=== PATIENT | female | born 1945 | race Caucasian/White ===

== ENCOUNTER → 2016-09-16 | Outpatient (CLI) | payer MEDICARE ==
[~2016-09-16] MED LIST: GLUCTAB47 PO; HYDR-3534 PO; LEVO.15 PO; PRAV80 PO; PRED20 PO; PRIL20TA2 PO; SOMA350T PO; SUCR1TAB6 PO; WALKER STANDARD
[2016-09-16 11:47] LABS: BLOOD GAS BASE EXCESS 2.5 mmol/L (-2-2); BLOOD GAS CARBOXYHEMOGLOBIN 1.6 % (0-4); BLOOD GAS HCO3 26 mmol/L (22-26); BLOOD GAS METHEMOGLOBIN 1.1 % (0-2); BLOOD GAS O2 HGB SATURATION 92 % (90-100); BLOOD GAS OXYGEN CONTENT 19.5 Vol % (12.0-20.0); BLOOD GAS PCO2 40 mmHg (38-42); BLOOD GAS PO2 73 mmHg (61-120); CRITICAL VALUE NO; FIO2 21 %; TEMP CORR TO 98.6
[2016-09-16 11:48] LABS: DRAW SITE RT RADIAL; NUMBER OF ARTERIAL PUNCTURES 1; STAT NO; ULNAR PULSE PRESENT
--- NOTE | 2016-09-16 12:35 | RADRPT ---
EXAM DATE/TIME: 09/16/2016 12:07 [facility] COMPARISON: No previous studies available for comparison. INDICATIONS : Respiratory insufficiency. MEDICAL HISTORY : None. SURGICAL HISTORY : None. ENCOUNTER: Initial ACUITY: 1 day PAIN SCORE: 0/10 LOCATION: Bilateral chest FINDINGS: PA and lateral views of the chest demonstrate the lungs to be symmetrically aerated without evidence of mass, infiltrate or effusion. The cardiomediastinal contours are unremarkable. Osseous structure s are intact. CONCLUSION: No acute disease. Darien Hull MD on September 16, 2016 at 12:33 Board Certified Radiologist. This report was verified electronically.
--- NOTE | 2016-09-28 10:05 | RSPPFT ---
DATE OF PROCEDURE: 09/16/16 COMMENTS: Spirometry with FVC of 2.6, FEV1 of 1.8, FEV1/FVC ratio at 70%. A non-significant response to acutely inhaled bronchodilator noted. Room air arterial blood gases show pH of 7.43, PCO2 of 40, PO2 of 73. Slow vital capacity is 78%. TLC is 100%. Diffusion capacity is mildly reduced however, when corrected for alveolar volume. IMPRESSION: 1. Moderately severe obstructive airways disease. 2. Non-significant response to acutely inhaled bronchodilator. 3. No evidence of airways restriction.
== END ==
LOC: HRSP 10:35
PROVIDERS: ATTEND Internal Medicine Sleep Medicine
DX: R06.89 Other abnormalities of breathing (principal)
CPT/HCPCS: 36600; 71020; 82805; 94060; 94726; 94729

== ENCOUNTER 2017-10-07 17:11 | Observation (INO) | payer MEDICARE ==
[2017-10-07 17:17] VITALS: BP 182/91; PULSE 72; RESP 18; TEMP 98.4; O2SAT 97
[2017-10-07] MEDS ORDERED: PRAV40TA2 PO (18:27)
[2017-10-07] MEDS ORDERED: LEVO150T7 PO (18:27)
[2017-10-07] MEDS ORDERED: SUCR1TAB PO (18:27)
[2017-10-07] MEDS ORDERED: DULO20 PO (18:27)
[2017-10-07] MEDS ORDERED: pain med PO (18:27)
[2017-10-07 18:46] VITALS: BP 172/90; PULSE 70; RESP 21; O2SAT 95
[2017-10-07] MEDS ORDERED: HYDR-3580 PO (18:53)
[2017-10-07 19:13] LABS: BASOPHIL # 0.1 TH/MM3 (0-0.2); EOSINOPHIL # 0.4 TH/MM3 (0-0.4); EOSINOPHIL % 4.9 % (0.0-4.0); HEMATOCRIT 41.5 % (35.0-46.0); HEMOGLOBIN 13.9 GM/DL (11.6-15.3); MEAN CELL VOLUME 91.4 FL (80.0-100.0); MEAN CORPUSCULAR HEMOGLOBIN 30.6 PG (27.0-34.0); MEAN CORPUSCULAR HGB CONC 33.5 % (32.0-36.0); MEAN PLATELET VOLUME 7.1 FL (7.0-11.0); MONO % 9.4 % (0.0-8.0); MONOCYTE # 0.8 TH/MM3 (0-0.9); NEUT % 60.7 % (16.0-70.0); PLATELET COUNT 212 TH/MM3 (150-450); RED BLOOD COUNT 4.54 MIL/MM3 (4.00-5.30); RED CELL DISTRIBUTION WIDTH 13.6 % (11.6-17.2); WHITE BLOOD COUNT 8.2 TH/MM3 (4.0-11.0)
[2017-10-07 19:14] LABS: AMORPHOUS SEDIMENT, URINE RARE; BACTERIA, URINE OCC /hpf; BILIRUBIN, URINE NEG (NEG); BLOOD, URINE MOD (NEG); GLUCOSE,URINE NEG (NEG); KETONE, URINE NEG (NEG); NITRITE,URINE NEG (NEG); PH, URINE 5.5 (5.0-8.5); SQUAMOUS EPITHELIAL CELL URINE 1 /hpf (0-5); URINE COLOR COLORLESS (YELLW/STRAW); URINE LEUKOCYTE ESTERASE LARGE (NEG)
--- NOTE | 2017-10-07 19:31 | PD ---
HPI Chief Complaint: Abnormal Results Time Seen by Provider: 18:19 Travel History International Travel<30 days: No Contact w/Intl Traveler<30days: No Traveled to known affect area: No History of Present Illness HPI This is a 72-year-old female with history of hypothyroidism, fibromyalgia, presents today with complaints of newly diagnosed DVT of the right lower extremely. Patient reports she has had swelling and pain of her right lower extremity. She states when she went and saw her residential leasing agent, Dr. Payne, the physician ordered an outpatient ultrasound which showed positive DVT. PFSH Past Medical History Arthritis: Yes (OSTEOARTHRITIS) High Cholesterol: Yes Diabetes: Yes (diet control ) Patient Takes Glucophage: No Fibromyalgia: Yes Hypertension: Yes Immune Disorder: No Kidney Stones: Yes Neurologic: No Psychiatric: No Reproductive: No Sleep Apnea: Yes Thyroid Disease: Yes (HYPOTHROIDISM) Menopausal: Yes Past Surgical History Appendectomy: Yes Cardiac Surgery: Yes (CAROTIDECTOMY) Hysterectomy: Yes Joint Replacement: Yes (RIGHT TOTAL HIP) Tonsillectomy: Yes (WITH ADENOIDS) Other Surgery: Yes (BREAST BIOPSY) Social History Alcohol Use: No Tobacco Use: No Substance Use: No Allergies-Medications (Allergen,Severity, Reaction): Coded Allergies: adhesive (Unverified Allergy, Severe, Rash, 10/07/17) mercury salts (Unverified Allergy, Severe, RASH,EDEMA,PUSTULES, 10/07/17) neomycin (Unverified Allergy, Severe, VAGINITIS, 10/07/17) povidone-iodine (Unverified Allergy, Severe, Rash,EDEMA,PUSTULES, 10/07/17) Reported Meds & Prescriptions Reported Meds & Active Scripts Active Reported Hydrocodone-Acetaminophen 7.5 Mg-325 Mg Tab 2 Tab PO Q4-6H PRN Cymbalta DR (Duloxetine HCl) 20 Mg Capdr 20 Mg PO DAILY Pravastatin 40 Mg Tab 40 Mg PO DAILY Sucralfate 1 Gram Tab 1 Gm PO DAILY on empty stomach Levothyroxine (Levothyroxine Sodium) 150 Mcg Tab 150 Mcg PO DAILY Review of Systems Except as stated in HPI: all other systems reviewed are Neg General / Constitutional: No: Fever Eyes: No: Blurred Vision, Photophobia HENT: No: Headaches Cardiovascular: No: Chest Pain or Discomfort, Palpitations Respiratory: No: Cough, Shortness of Breath Gastrointestinal: No: Nausea, Vomiting Musculoskeletal: Positive: Edema (Right lower extreme right lower extremely), Pain (Right lower extremity), No: Limited ROM Neurologic: No: Weakness, Dizziness, Syncope, Headache Physical Exam Narrative GENERAL: Well-nourished, well-developed patient. Patient is in no acute respiratory distress. SKIN: Focused skin assessment warm/dry. HEAD: Normocephalic/atraumatic. EYES: No scleral icterus. No injection or drainage. NECK: Supple, trachea midline. No JVD or lymphadenopathy. CARDIOVASCULAR: Regular rate and rhythm without murmurs, gallops, or rubs. RESPIRATORY: Breath sounds equal bilaterally. No accessory muscle use. GASTROINTESTINAL: Abdomen soft, non-tender, nondistended. MUSCULOSKELETAL: No cyanosis,. Mild swelling to the right lower extremity compared to left lower extremity. No palpable cords. NEUROLOGICAL: Awake and alert. Cranial nerves II through XII intact. Motor and sensory grossly within normal limits. Five out of 5 muscle strength in all muscle groups. Normal speech. Data Data Last Documented VS Vital Signs Date Time Temp Pulse Resp B/P (MAP) Pulse Ox O2 Delivery O2 Flow Rate FiO2 10/07/17 18:46 70 21 172/90 (117) 95 Room Air 10/07/17: 98.4 Orders Orders Complete Blood Count With Diff (10/07/17:) Comprehensive Metabolic Panel (10/07/17:) Prothrombin Time / Inr (Pt) (10/07/17:) Act Partial Throm Time (Ptt) (10/07/17:) Urinalysis - C+S If Indicated (10/07/17 18:) Chest, Single Ap (10/07/17 18:19) Iv Access Insert/Monitor (10/07/17 18:19) Ecg Monitoring (10/07/17 18:19) Oximetry (10/07/17:) Urine Culture (10/07/17:45) Labs Laboratory Tests Test 10/07/17 18:45 White Blood Count 8.2 TH/MM3 Red Blood Count 4.54 MIL/MM3 Hemoglobin 13.9 GM/DL Hematocrit 41.5 % Mean Corpuscular Volume 91.4 FL Mean Corpuscular Hemoglobin 30.6 PG Mean Corpuscular Hemoglobin Concent 33.5 % Red Cell Distribution Width 13.6 % Platelet Count 212 TH/MM3 Mean Platelet Volume 7.1 FL Neutrophils (%) (Auto) 60.7 % Lymphocytes (%) (Auto) 24.0 % Monocytes (%) (Auto) 9.4 % Eosinophils (%) (Auto) 4.9 % Basophils (%) (Auto) 1.0 % Neutrophils # (Auto) 5.0 TH/MM3 Lymphocytes # (Auto) 2.0 TH/MM3 Monocytes # (Auto) 0.8 TH/MM3 Eosinophils # (Auto) 0.4 TH/MM3 Basophils # (Auto) 0.1 TH/MM3 CBC Comment DIFF FINAL Differential Comment Urine Color COLORLESS Urine Turbidity CLEAR Urine pH 5.5 Urine Specific [place] 1.004 Urine Protein NEG mg/dL Urine Glucose (UA) NEG mg/dL Urine Ketones NEG mg/dL Urine Occult Blood MOD Urine Nitrite NEG Urine Bilirubin NEG Urine Urobilinogen LESS THAN 2.0 MG/DL Urine Leukocyte Esterase LARGE Urine RBC 3 /hpf Urine WBC 56 /hpf Urine Squamous Epithelial Cells 1 /hpf Urine Amorphous Sediment RARE Urine Bacteria OCC /hpf Microscopic Urinalysis Comment CULTURE INDICATED MDM Medical Decision Making Medical Screen Exam Complete: Yes Emergency Medical Condition: Yes Differential Diagnosis DVT versus cellulitis versus tendinitis Narrative Course 72-year-old female presents today with complaints of newly diagnosed DVT of the right lower extremity. Patient had outpatient ultrasound right lower extremity which showed a deep venous thrombosis. She was sent here for evaluation and admission. She has a history of hypothyroidism and fibromyalgia. Case was discussed with Dr. Mata, who will bring the patient in under observation. She will be started on Eliquis. Diagnosis Primary Impression: Acute deep vein thrombosis (DVT) of right lower extremity Additional Impressions: History of hypothyroidism History of fibromyalgia Admitting Information Admitting Physician Requests: Observation Lb Herbert MD October 07, 2017 19:31
[2017-10-07 19:42] LABS: ALKALINE PHOSPHATASE 82 U/L (45-117); ALT (GPT) 19 U/L (10-53); TOTAL BILIRUBIN ADULT 0.6 MG/DL (0.2-1.0); TOTAL PROTEIN 7.7 GM/DL (6.4-8.2)
[2017-10-07 19:47] LABS: ALBUMIN 3.5 GM/DL (3.4-5.0); AST (GOT) 41 U/L (15-37); BICARBONATE 27.3 MEQ/L (21.0-32.0); BLOOD UREA NITROGEN 24 MG/DL (7-18); CALCIUM 9.7 MG/DL (8.5-10.1); CHLORIDE 106 MEQ/L (98-107); CREATININE 0.88 MG/DL (0.50-1.00); GLOMERULAR FILTRATION RATE 63 ML/MIN (>89); GLUCOSE,RANDOM 95 MG/DL (74-106); SODIUM (NA) 141 MEQ/L (136-145)
[2017-10-07] MEDS ORDERED: ACETAMINOPHEN/HYDROcodone 325 MG/7.5 MG TAB PO PRN (20:30)
[2017-10-07] MEDS ORDERED: ONDANSETRON HCL 4 MG/2 ML VIAL IVP PRN (20:30)
[2017-10-07] MEDS ORDERED: SODIUM CHLORIDE 0.9% FLUSH 10 ML FLUSH IV FLUSH PRN (20:30)
[2017-10-07] MEDS ORDERED: NALOXONE HCL 0.4 MG/ML AMP IV PUSH PRN (20:30)
[2017-10-07] MEDS ORDERED: ACETAMINOPHEN 325 MG TAB PO PRN (20:30)
--- NOTE | 2017-10-07 20:38 | RADRPT ---
EXAM DATE/TIME: 10/07/2017 18:57 [facility] COMPARISON: No previous studies available for comparison. INDICATIONS : Shortness of breath. MEDICAL HISTORY : None. SURGICAL HISTORY : None. ENCOUNTER: Initial ACUITY: 1 day PAIN SCORE: 0/10 LOCATION: Bilateral chest FINDINGS: A single view of the chest demonstrates the lungs to be symmetrically aerated without evidence of mas s, infiltrate or effusion. The cardiomediastinal contours are unremarkable. Osseous structures are intact. CONCLUSION: No acute disease. Jose Junior MD on October 07, 2017 at 20:36 Board Certified Radiologist. This report was verified electronically.
[2017-10-07] MEDS: SODIUM CHLORIDE 0.9% FLUSH 10 ML FLUSH IV FLUSH SCH (20:47)
[2017-10-07] MEDS: SODIUM CHLOR 0.9% 1000 ML INJ 1,000 ML IV SCH (20:47)
[2017-10-07] MEDS: APIXABAN 5 MG TABLET PO SCH (20:56)
--- NOTE | 2017-10-07 21:36 | HHI.HP ---
HPI Service [facility] Primary Care Physician Levy Bunch DO Admission Diagnosis acute right lower ext. dvt, hypothyroidism.fibromyalgia Diagnoses: Travel History International Travel<30 Days: No Contact w/Intl Traveler <30 Da: No Traveled to Known Affected Are: No History of Present Illness 72-year-old female with past medical history significant for fibromyalgia, osteoarthritis, hypothyroidism and recently diagnosed diabetes mellitus controlled with diet presents to the emergency department for the evaluation of a DVT. The patient reports she has had 3 weeks of right lower extremity swelling and redness. She was seen by her primary care provider today and lower extremity ultrasound was ordered as an outpatient. The ultrasound was positive for right lower extremity DVT and she was sent to the emergency department for further evaluation. The patient denies any right lower extremity pain/swelling. No chest pain or shortness of breath. No abdominal pain. No nausea/vomiting/diarrhea. No lateralizing signs/symptoms. Review of Systems Except as stated in HPI: all other systems reviewed are Neg Past Family Social History Past Medical History Fibromyalgia Osteoarthritis Hypothyroidism Diabetes mellitus controlled with diet Past Surgical History Left foot Tonsillectomy Right parotidectomy Total abdominal hysterectomy Appendectomy Cholecystectomy Right hip replacement Reported Medications Reported Meds & Active Scripts Active Reported Hydrocodone-Acetaminophen 7.5 Mg-325 Mg Tab 2 Tab PO Q4-6H PRN Cymbalta DR (Duloxetine HCl) 20 Mg Capdr 20 Mg PO DAILY Pravastatin 40 Mg Tab 40 Mg PO DAILY Sucralfate 1 Gram Tab 1 Gm PO DAILY on empty stomach Levothyroxine (Levothyroxine Sodium) 150 Mcg Tab 150 Mcg PO DAILY Allergies: Coded Allergies: adhesive (Unverified Allergy, Severe, Rash, 10/07/17) mercury salts (Unverified Allergy, Severe, RASH,EDEMA,PUSTULES, 10/07/17) neomycin (Unverified Allergy, Severe, VAGINITIS, 10/07/17) povidone-iodine (Unverified Allergy, Severe, Rash,EDEMA,PUSTULES, 10/07/17) Family History Negative for CAD/DM Social History Remote history of tobacco. Occasional alcohol. Denies illicit drugs. Physical Exam Vital Signs Vital Signs Date Time Temp Pulse Resp B/P (MAP) Pulse Ox O2 Delivery O2 Flow Rate FiO2 10/07/17 18:46 70 21 172/90 (117) 95 Room Air 10/07/17 17:17 98.4 72 18 182/91 (121) 97 Physical Exam GENERAL: female lying in bed SKIN: No rashes, ecchymoses or lesions. Cool and dry. Mild erythema on the right foot. HEAD: Atraumatic. Normocephalic. No temporal or scalp tenderness. EYES: Pupils equal round and reactive. Extraocular motions intact. No scleral icterus. No injection or drainage. ENT: Nose without bleeding, purulent drainage or septal hematoma. Throat without erythema, tonsillar hypertrophy or exudate. Uvula midline. Airway patent. NECK: Trachea midline. No JVD or lymphadenopathy. Supple, nontender, no meningeal signs. CARDIOVASCULAR: Regular rate and rhythm without murmurs, gallops, or rubs. RESPIRATORY: Clear to auscultation. Breath sounds equal bilaterally. No wheezes , rales, or rhonchi. GASTROINTESTINAL: Abdomen soft, non-tender, nondistended. No hepato-splenomegaly , or palpable masses. No guarding. MUSCULOSKELETAL: 2+ edema of the right lower extremity NEUROLOGICAL: Awake and alert. Cranial nerves II through XII intact. Motor and sensory grossly within normal limits. Normal speech. Laboratory Laboratory Tests Test 10/07/17 18:45 White Blood Count 8.2 Red Blood Count 4.54 Hemoglobin 13.9 Hematocrit 41.5 Mean Corpuscular Volume 91.4 Mean Corpuscular Hemoglobin 30.6 Mean Corpuscular Hemoglobin Concent 33.5 Red Cell Distribution Width 13.6 Platelet Count 212 Mean Platelet Volume 7.1 Neutrophils (%) (Auto) 60.7 Lymphocytes (%) (Auto) 24.0 Monocytes (%) (Auto) 9.4 Eosinophils (%) (Auto) 4.9 Basophils (%) (Auto) 1.0 Neutrophils # (Auto) 5.0 Lymphocytes # (Auto) 2.0 Monocytes # (Auto) 0.8 Eosinophils # (Auto) 0.4 Basophils # (Auto) 0.1 CBC Comment DIFF FINAL Differential Comment Prothrombin Time 10.0 Prothromb Time International Ratio 1.0 Activated Partial Thromboplast Time 23.3 Urine Color COLORLESS Urine Turbidity CLEAR Urine pH 5.5 Urine Specific [place] 1.004 Urine Protein NEG Urine Glucose (UA) NEG Urine Ketones NEG Urine Occult Blood MOD Urine Nitrite NEG Urine Bilirubin NEG Urine Urobilinogen LESS THAN 2.0 Urine Leukocyte Esterase LARGE Urine RBC 3 Urine WBC 56 Urine Squamous Epithelial Cells 1 Urine Amorphous Sediment RARE Urine Bacteria OCC Microscopic Urinalysis Comment CULTURE INDICATED Blood Urea Nitrogen 24 Creatinine 0.88 Random Glucose 95 Total Protein 7.7 Albumin 3.5 Calcium Level 9.7 Alkaline Phosphatase 82 Aspartate Amino Transf (AST/SGOT) 41 Alanine Aminotransferase (ALT/SGPT) 19 Total Bilirubin 0.6 Sodium Level 141 Potassium Level 5.0 Chloride Level 106 Carbon Dioxide Level 27.3 Anion Gap 8 Estimat Glomerular Filtration Rate 63 Date/Time Source Procedure Growth Status 10/07/17 18:45 Urine Random Urine Urine Culture Pending Received Result Diagram: 10/07/17184410/07/171844 Alrini VTE Risk Assessment Caprini VTE Risk Assessment: Mod/High Risk (score >= 2) Caprini Risk Assessment Model Point Value = 1 Point Value = 2 Point Value = 3 Point Value = 5 Age 41-60 Minor surgery BMI > 25 kg/m2 Swollen legs Varicose veins or History of unexplained or recurrent spontaneous Oral contraceptives or hormone replacement Sepsis (< 1 month) Serious lung disease, including pneumonia (< 1 month) Abnormal pulmonary function Acute myocardial infarction Congestive heart failure (< 1 month) History of inflammatory bowel disease Medical patient at bed rest Age 61-74 Arthroscopic surgery Major open surgery (> 45 min) Laparoscopic surgery (> 45 min) Malignancy Confined to bed (> 72 hours) Immobilizing plaster cast Central venous access Age >= 75 History of VTE Family history of VTE Factor V Leiden Prothrombin [id number] Lupus anticoagulant Anticardiolipin antibodies Elevated serum homocysteine Heparin-induced thrombocytopenia Other congenital or acquired thrombophilia Stroke (< 1 month) Elective arthroplasty Hip, pelvis, or leg fracture Acute spinal cord injury (< 1 month) Prophylaxis Regimen Total Risk Factor Score Risk Level Prophylaxis Regimen 0-1 Low Early ambulation 2 Moderate Order ONE of the following: *Sequential Compression Device (SCD) *Heparin 5000 units SQ BID 3-4 Higher Order ONE of the following medications: *Heparin 5000 units SQ TID *Enoxaparin/Lovenox 40 mg SQ daily (WT < 150 kg, CrCl > 30 mL/min) *Enoxaparin/Lovenox 30 mg SQ daily (WT < 150 kg, CrCl > 10-29 mL/min) *Enoxaparin/Lovenox 30 mg SQ BID (WT < 150 kg, CrCl > 30 mL/min) AND/OR *Sequential Compression Device (SCD) 5 or more Highest Order ONE of the following medications: *Heparin 5000 units SQ TID (Preferred with Epidurals) *Enoxaparin/Lovenox 40 mg SQ daily (WT < 150 kg, CrCl > 30 mL/min) *Enoxaparin/Lovenox 30 mg SQ daily (WT < 150 kg, CrCl > 10-29 mL/min) *Enoxaparin/Lovenox 30 mg SQ BID (WT < 150 kg, CrCl > 30 mL/min) AND *Sequential Compression Device (SCD) Assessment and Plan Assessment and Plan Assessment/plan: 1. DVT Outpatient ultrasound significant for right lower extremity DVT Jaqueline Anticipate discharge to home tomorrow with Jaqueline Follow-up outpatient with PCP 2. Hypothyroidism Continue home Synthroid 3. Fibromyalgia/chronic pain Continue home medications 4. Hyperlipidemia Continue home statin FEN Heart healthy diet Electrolytes: Monitor and replete as needed Yamileth Leal MD October 07, 2017 21:36
[2017-10-07 21:48] VITALS: BP 176/83; PULSE 81; RESP 17; TEMP 98.6; O2SAT 97
[2017-10-07 23:23] VITALS: BP 167/71; PULSE 82; RESP 17; TEMP 98.6; O2SAT 98
[2017-10-08 03:14] VITALS: BP 143/70; PULSE 77; RESP 17; TEMP 98.2; O2SAT 95
[2017-10-08 05:44] LABS: AUTOMATED NEUTROPHIL # 4.8 TH/MM3 (1.8-7.7); BASOPHIL # 0.1 TH/MM3 (0-0.2); BASOPHIL % 0.7 % (0.0-2.0); EOSINOPHIL # 0.5 TH/MM3 (0-0.4); EOSINOPHIL % 6.2 % (0.0-4.0); HEMATOCRIT 41.5 % (35.0-46.0); HEMOGLOBIN 14.1 GM/DL (11.6-15.3); LYMPH % 19.9 % (9.0-44.0); LYMPHOCYTE # 1.5 TH/MM3 (1.0-4.8); MEAN CELL VOLUME 91.6 FL (80.0-100.0); MEAN CORPUSCULAR HEMOGLOBIN 31.1 PG (27.0-34.0); MEAN CORPUSCULAR HGB CONC 33.9 % (32.0-36.0); MONOCYTE # 0.7 TH/MM3 (0-0.9); NEUT % 64.2 % (16.0-70.0); PLATELET COUNT 200 TH/MM3 (150-450); RED BLOOD COUNT 4.53 MIL/MM3 (4.00-5.30); RED CELL DISTRIBUTION WIDTH 13.5 % (11.6-17.2); WHITE BLOOD COUNT 7.4 TH/MM3 (4.0-11.0)
[2017-10-08] MEDS ORDERED: LEVOTHYROXINE SODIUM 150 MCG TAB PO SCH (06:00)
[2017-10-08 06:09] LABS: BICARBONATE 27.4 MEQ/L (21.0-32.0); CALCIUM 9.3 MG/DL (8.5-10.1); CREATININE 0.85 MG/DL (0.50-1.00)
[2017-10-08] MEDS: APIXABAN 5 MG TABLET PO SCH (08:07)
[2017-10-08] MEDS: SODIUM CHLOR 0.9% 1000 ML INJ 1,000 ML IV SCH (08:08)
[2017-10-08] MEDS: SODIUM CHLORIDE 0.9% FLUSH 10 ML FLUSH IV FLUSH SCH (08:08)
[2017-10-08 08:29] VITALS: BP 133/68; PULSE 74; RESP 18; TEMP 97.8; O2SAT 96
[2017-10-08] MEDS ORDERED: SUCRALFATE 1 GM TAB PO SCH (09:00)
[2017-10-08] MEDS ORDERED: DULoxetine HCl DR 20 MG CAP PO SCH (09:00)
[2017-10-08] MEDS ORDERED: PRAVASTATIN SOD 40 MG TAB PO SCH (09:00)
--- NOTE | 2017-10-08 11:33 | HHI.PR ---
Subjective Remarks Follow up for DVT. The patient reports continued right leg swelling, unchanged compared to yesterday. Denies any significant pain of the right leg. Denies ever having any chest pain or shortness of breath. O2 sat stable on room air. Thoroughly discussed starting Eliquis, patient verbalized understanding. She wants to go home. Objective Vitals Vital Signs Date Time Temp Pulse Resp B/P (MAP) Pulse Ox O2 Delivery O2 Flow Rate FiO2 10/08/17 08:29 97.8 74 18 133/68 (89) 96 10/08/17 03:14 98.2 77 17 143/70 (94) 95 10/07/17 23:23 98.6 82 17 167/71 (103) 98 10/07/17 21:48 98.6 81 17 176/83 (114) 97 10/07/17 21:43 10/07/17 18:46 70 21 172/90 (117) 95 Room Air 10/07/17 17:17 98.4 72 18 182/91 (121) 97 Result Diagram: 10/08/17 0508 10/08/17 0508 Imaging Last Impressions Chest X-Ray 10/07/171818 Signed Impressions: Service Date/Time: September 18:57 - CONCLUSION: No acute disease. Jose Junior MD Objective Remarks GENERAL: Well-nourished, well-developed elderly female patient in [facility]. SKIN: Warm and dry. No rash. HEENT: Normocephalic. Atraumatic. Pupils equal and round. Mucous membranes pink and moist. CARDIOVASCULAR: Regular rate and rhythm. No murmur appreciated. RESPIRATORY: No accessory muscle use. Clear to auscultation. Breath sounds equal bilaterally. GASTROINTESTINAL: Abdomen soft, non-tender, nondistended. Normoactive bowel sounds x4. MUSCULOSKELETAL: No obvious deformities. Right lower extremity with diffuse tense 1+pitting edema, nontender to palpation, right calf larger than the left. Left calf nontender/nonedematous. NEUROLOGICAL: Awake and alert. No obvious cranial nerve deficits. Motor grossly within normal limits. Moving all extremities spontaneously. Normal speech. PSYCHIATRIC: Appropriate mood and affect; insight and judgment normal. Procedures None. Medications and IVs Current Medications Medications (Trade) Dose Ordered Sig/Bonifacio Route Start Time Stop Time Status Last Admin (Eliquis) 10 mg BID PO 10/07/17 21:00 10/08/17 08:07 Sodium Chloride 1,000 ml @ 100 mls/hr Q10H IV 10/07/17 21:00 10/08/17 08:08 (NS Flush) 2 ml UNSCH PRN IV FLUSH 10/07/17 20:30 (NS Flush) 2 ml BID IV FLUSH 10/07/17 21:00 10/08/17 08:08 (Tylenol) 650 mg Q4H PRN PO 10/07/17 20:30 (Zofran Inj) 4 mg Q6H PRN IVP 10/07/17 20:30 (Narcan Inj) 0.4 mg UNSCH PRN IV PUSH 10/07/17 20:30 (Cymbalta Dr) 20 mg DAILY PO 10/08/17 09:00 10/08/17 08:07 (Synthroid) 150 mcg DAILY@0600 PO 10/08/17 06:00 10/08/17 06:38 (Pravachol) 40 mg DAILY PO 10/08/17 09:00 10/08/17 08:07 (Carafate) 1 gm DAILY PO 10/08/17 09:00 10/08/17 08:07 ([place] 7.5-325 Mg) 2 tab Q6H PRN PO 10/07/17 20:30 A/P Assessment and Plan 72-year-old female with past medical history significant for fibromyalgia, osteoarthritis, hypothyroidism and recently diagnosed diabetes mellitus controlled with diet sent to the ED by Dr. Payne's office after outpatient Doppler U/S positive for DVT. Acute RLE DVT: unclear etiology, no significant recent travel, not on hormonal therapy. Recently she was at an art show for an entire week where she sat for many hours at a time. -Reviewed patient's outpatient Doppler U/S disc with radiologist, confirmed RLE DVT of popliteal, peroneal, and superficial femoral veins. -Started on Eliquis 10mg bid x1week, then 5mg bid, discussed risks of medication -No complaints of chest pain, palpitations, shortness of breath, or hypoxia to suggest PE -Outpatient f/up with PCP -Case management to assist patient with receiving Eliquis prescription Hypothyroidism: chronic -Continue home Synthroid Fibromyalgia/chronic pain: chronic -Continue home medications Hyperlipidemia: chronic -Continue home statin Discharge Planning Discharge patient to home Condition on discharge: Stable Heart Healthy Diet as tolerated Ad Yaquelin activity Rx written: Eliquis 10mg bid x1 week, then 5mg bid Follow-up with primary care physician within 1 week Latosha Wilburn PA-C October 08, 2017 11:33 am
[2017-10-08] MEDS ORDERED: APIX5TAB PO (11:43)
--- NOTE | 2017-10-08 11:44 | HHI.DCPOC ---
Discharge Care Plan Diagnosis: (1) Acute deep vein thrombosis (DVT) of right lower extremity Goals to Promote Your Health * To prevent worsening of your condition and complications * To maintain your health at the optimal level Directions to Meet Your Goals Take your medications as prescribed Follow your dietary instruction Follow activity as directed Keep your appointments as scheduled Take your immunizations and boosters as scheduled If your symptoms worsen call your PCP, if no PCP go to Urgent Care Center or Emergency Room Smoking is Dangerous to Your Health. Avoid second hand smoke Call the 24-hour hour crisis hotline for domestic abuse at Latosha Wilburn PA-C October 08, 2017 11:44 am
== END 2017-10-08 17:45 | disposition home or self-care (01) ==
LOC: NEPE 17:11 → NEDA 19:45 → NEPFCDU 22:19
PROVIDERS: ADMIT Hospitalist; ATTEND Hospitalist
DX: I82.401 Acute embolism and thrombosis of unspecified deep veins of right lower extremity (principal); E03.9 Hypothyroidism, unspecified; M79.7 Fibromyalgia; G89.29 Other chronic pain; E78.5 Hyperlipidemia, unspecified; R82.99 Other abnormal findings in urine; B96.89 Other specified bacterial agents as the cause of diseases classified elsewhere; E11.9 Type 2 diabetes mellitus without complications; M79.89 Other specified soft tissue disorders; M19.90 Unspecified osteoarthritis, unspecified site; Z96.641 Presence of right artificial hip joint; Z87.891 Personal history of nicotine dependence
CPT/HCPCS: 71045; 80048; 80053; 81001; 85025; 85610; 85730; 87077; 87086; 87186; 96360; 96361; 99285; G0378; J7030

== ENCOUNTER 2018-02-20 11:30 | Observation (INO) ==
--- NOTE | 2018-02-20 12:17 | XR ---
EXAM DATE: 02/20/2018 11:54 AM EDT AGE/SEX: 73 years / Female INDICATIONS: Evaluate for pneumonia CLINICAL DATA: This is the patient's initial encounter. Patient reports that signs and symptoms have been present for 3 days and indicates a pain score of 0/10. MEDICAL/SURGICAL HISTORY: None. None. COMPARISON: [facility] [place], CHEST SINGLE AP, 10/07/2017. . FINDINGS: The heart is normal in size. The lungs demonstrate diffuse chronic appearing interstitial change but are otherwise clear. There is no overt congestive failure. No pneumothorax or pleural effusion is ashley ntified. The overall appearance of the parenchyma similar to a previous dated 10/07/2017. The visualiz ed bony structures are intact. CONCLUSION: Chronic appearing interstitial changes. No acute abnormality. Electronically signed by: Bari Andersen MD 02/20/2018 12:16 PM EDT
--- NOTE | 2018-02-20 12:25 | CT ---
EXAM DATE: 02/20/2018 12:08 PM EDT AGE/SEX: 73 years / Female INDICATIONS: Altered Mental Status CLINICAL DATA: This is the patient's initial encounter. Patient reports that signs and symptoms have been present for 1 day and indicates a pain score of 0/10. MEDICAL/SURGICAL HISTORY: Diabetes. Deep venous thrombosis. None. RADIATION DOSE: 56.35 CTDI (mGy) COMPARISON: No prior exams available for comparison. TECHNIQUE: CT of the head without contrast. Using automated exposure control and adjustment of the mA and/or kV according to patient size, radiation dose was kept as low as reasonably achievable to ob tain optimal diagnostic quality images. DICOM format image data is available electronically for revi ew and comparison. FINDINGS: Cerebrum: The ventricles are normal for age. No evidence of midline shift, mass lesion, hemorrhage or acute infarction. No extraaxial fluid collections are seen. Posterior Fossa: The cerebellum and brainstem are intact. The 4th ventricle is midline. The cerebe llopontine angle is unremarkable. Extracranial: The visualized portion of the orbits is intact. Skull: The calvaria is intact. No evidence of skull fracture. CONCLUSION: 1. Negative CT Head non contrast. . Electronically signed by: Bari Andersen MD 02/20/2018 12:24 PM EDT
--- NOTE | 2018-02-20 12:38 | ED ---
HPI General Chief complaint: Medical Clearance Stated complaint: Lethargy Time Seen by Provider: 02/20/18 11:53 Source: patient and family Mode of arrival: ambulatory Limitations: no limitations History of Present Illness HPI narrative: Patient is a 73-year-old female presenting to the emergency department for evaluation of altered mentation. Patient states that she just cannot concentrate. Her reports that she has had increased fatigue and has been sleeping. Patient states that she has been incontinent of stool and urine, she denies any numbness or saddle paresthesia, she states that she does not remember to go to the bathroom or cannot get up to go to the bathroom quick enough. She denies any abdominal pain, chest pain, shortness of breath, headache, nausea, vomiting. Started 4 days ago. Patient thinks it is because her CPAP has not been cleaned. Symptom onset was gradual, symptoms are mild in nature. Medical history is significant for sleep apnea, hypothyroidism, fibromyalgia, diet-controlled type 2 diabetes. Patient is not on any blood thinners, she has had no recent falls. She denies any illicit drug use. Related Data Home Medications Medication Instructions Recorded Confirmed levothyroxine 150 mcg PO DAILY 01/28/18 02/20/18 omeprazole magnesium [Prilosec OTC] 20 mg PO DAILY 01/28/18 02/20/18 duloxetine [Cymbalta] 60 mg PO DAILY 02/20/18 02/20/18 lovastatin 20 mg PO DAILY 02/20/18 02/20/18 Allergies Allergy/AdvReac Type Severity Reaction Status Date / Time adhesive Allergy Severe Rash Verified 01/28/18 22:42 mercury salts Allergy Severe RASH,EDEMA, Verified 01/28/18 22:42 PUSTULES neomycin Allergy Severe VAGINITIS Verified 01/28/18 22:42 povidone-iodine Allergy Severe Rash,EDEMA, Verified 01/28/18 22:42 PUSTULES Review of Systems ROS: all other systems reviewed are negative PMFSH History History Provided By: Patient and Family Member Medical History Medical History Fibromyalgia (Acute) Hypothyroid (Acute) Sleep apnea (Acute) DVT (deep venous thrombosis) (Acute) Diabetes (Acute) High cholesterol (Acute) Social History Social History Substance History: No History of Abuse Second Hand Smoke Exposure: Yes Smoking Status: Never smoker Tobacco Type: Cigarettes How Often Do You Have a Drink Containing Alcohol: 2 to 3 times a week Recent Travel in [facility] within the Last 8 Weeks: No Recent Out of Country Travel within the Last 8 Weeks: No Exam Narrative Exam Narrative: GENERAL: Well-developed, well-nourished, alert elderly female. Presenting in no acute distress. SKIN: Focused skin assessment warm/dry. HEAD: Atraumatic. Normocephalic. EYES: Pupils equal and round. No scleral icterus. No injection or drainage. ENT: No nasal bleeding or discharge. Mucous membranes pink and moist. NECK: Trachea midline. No JVD. CARDIOVASCULAR: Regular rate and rhythm. No murmur appreciated. RESPIRATORY: No accessory muscle use. Clear to auscultation. Breath sounds equal bilaterally. GASTROINTESTINAL: Abdomen soft, non-tender, nondistended. Hepatic and splenic margins not palpable. MUSCULOSKELETAL: No obvious deformities. No clubbing. No cyanosis. No edema. NEUROLOGICAL: Awake and alert, oriented x3. No obvious cranial nerve deficits. Motor grossly within normal limits. Normal speech. PSYCHIATRIC: Appropriate mood and affect; insight and judgment normal. Course Initial Documented Vital Signs Temperature 98.5 F 02/20/18 11:33 Pulse Rate 87 02/20/18 11:33 Blood Pressure 114/55 L 02/20/18 11:33 Pulse Oximetry 95 02/20/18 11:33 Last Documented Vital Signs Temperature 99.5 F 02/20/18 11:40 Pulse Rate 87 02/20/18 11:40 Respiratory Rate 20 02/20/18 11:40 Blood Pressure 114/55 L 02/20/18 11:40 Pulse Oximetry 95 02/20/18 15:28 Medical Decision Making ISAAC Attestation ISAAC supervised visit: Yes Attestation: I was present with the advanced practitioner during the management of this patient. I discussed the case with the advanced practitioner and agree with the findings and plan as documented in their note except as noted below. 73yF presenting with fatigue, urinary incontinence, confusion. Her workup is significant for leukocytosis with bandemia and UTI/ pyelonephritis. Lactic acid normal, CXR and CTH negative. This patient will require IV antibiotics and re- evaluation at frequent intervals. MDM Narrative Medical decision making narrative: Patient is well-appearing 73-year-old female , alert and oriented x3, no focal deficits on exam. Presenting for difficulty concentrating and increased fatigue as well as incontinence for the last 4 days. Labs and imaging ordered and pending. is at bedside. Patient's vital signs are stable. Patient was placed on telemetry monitoring continuous pulse oximetry. IV access was established. CBC with a white blood cell count of 17.8 with left shift and significant bandemia and elevated segs. Urinalysis is nitrite positive urinary tract infection, lactic acid and blood cultures ordered, urine culture is pending. Patient was started on vancomycin and Zosyn empirically. CT scan of the brain shows no acute findings and chest x-ray without any acute abnormalities. Lactic acid is normal. Patient will be admitted for IV antibiotic therapy. Patient and were advised on findings and plan of care and are agreeable. Discussed with residents who accepted admit under Dr. Betancourt. Admit orders placed. Medical Screen Exam Complete: Yes Emergency Medical Condition: Yes Differential Diagnosis Differential Diagnosis: UTI versus substance abuse versus metabolic abnormality versus TIA versus CVA versus other Medical Records Medical records reviewed: Yes I reviewed the patient's medical records. Lab Data Lab results reviewed: Yes I reviewed the patient's lab results. Result diagrams: 02/20/18 12:38 02/20/18 12:38 Lab Results 02/20/18 02/20/18 02/20/18 Range/Units 12:38 12:38 12:38 WBC 17.8 H (4.0-11.0) th/mm3 RBC 4.40 (4.00-5.30) mil/mm3 Hgb 13.3 (11.6-15.3) gm/dL Hct 40.9 (35.0-46.0) % MCV 93.0 (80.0-100.0) fL MCH 30.2 (27.0-34.0) pg MCHC 32.5 (32.0-36.0) % RDW 13.5 (11.6-17.2) % Plt Count 221 (150-450) th/mm3 MPV 7.4 (7.0-11.0) fL Prelim Diff (Auto) Slide review pending Neut % (Auto) 86.2 H (16.0-70.0) % Lymph % (Auto) 3.8 L (9.0-44.0) % Charles % (Auto) 9.8 H (0.0-8.0) % Eos % (Auto) 0.0 (0.0-4.0) % Baso % (Auto) 0.2 (0.0-2.0) % Neut # (Auto) 15.3 H (1.8-7.7) th/mm3 Lymph # (Auto) 0.7 L (1.0-4.8) th/mm3 Charles # (Auto) 1.7 H (0.0-0.9) th/mm3 Eos # (Auto) 0.0 (0.0-0.4) th/mm3 Baso # (Auto) 0.0 (0.0-0.2) th/mm3 WBC Differential Manual diff final Seg Neuts % (Manual) 71 H (16-70) % Band Neuts % (Manual) 13 H (0-6) % Lymphocytes % (Manual) 6 L (9-44) % Monocytes % (Manual) 10 H (0-8) % Abs Neuts (Manual) 15.0 H (1.8-7.7) th/mm3 Differential Comment . Platelet Estimate Normal (Normal) Platelet Morphology Normal (Normal) RBC Morphology Normal (Normal) PT 11.7 H (9.8-11.6) sec INR 1.2 Ratio APTT 25.9 (24.3-30.1) sec Sodium 133 L (136-145) meq/L Potassium 3.7 (3.5-5.1) meq/L Chloride 96 L (98-107) meq/L Carbon Dioxide 27.2 (21.0-32.0) meq/L Anion Gap 10 (5-15) meq/L BUN 15 (7-18) mg/dL Creatinine 1.10 H (0.50-1.00) mg/dL Estimated GFR 49 L (>89) mL/min Random Glucose 145 H (74-106) mg/dL Lactic Acid (0.4-2.0) mmol/L Calcium 8.9 (8.5-10.1) mg/dL Total Bilirubin 1.1 H (0.2-1.0) mg/dL AST 20 (15-37) U/L ALT 18 (10-53) U/L Alkaline Phosphatase 82 (45-117) U/L Total Creatine Kinase 98 (26-192) U/L Troponin I Less than 0.02 L (0.02-0.05) ng/mL Total Protein 7.2 (6.4-8.2) g/dL Albumin 2.6 L (3.4-5.0) g/dL TSH 0.172 L (0.358-3.740) uIU/mL Urine Color (Yellw/Straw) Urine Clarity (Clear) Urine pH (5.0-8.5) Ur Specific [place] (1.002-1.035) Urine Protein (Neg-Trace) mg/dL Urine Glucose (UA) (Negative) mg/dL Urine Ketones (Negative) mg/dL Urine Occult Blood (Negative) Urine Nitrate (Negative) Urine Bilirubin (Negative) Urine Urobilinogen (Less than 2) mg/dL Ur Leukocyte Esterase (Negative) Urine RBC (0-3) /hpf Urine WBC (0-5) /hpf Urine WBC Clumps (None) Ur Squamous Epith Cells (0-5) /hpf Urine Bacteria (None) /hpf Micro UA Comment Ur Microscopic Review Urine Culture Comments Urine Opiates Screen (Neg) Ur Barbiturates Screen (Neg) Ur Amphetamines Screen (Neg) U Benzodiazepines Scrn (Neg) Urine Cocaine Screen (Neg) U Cannabinoids Screen (Neg) 02/20/18 02/20/18 02/20/18 Range/Units 13:53 13:53 14:17 WBC (4.0-11.0) th/mm3 RBC (4.00-5.30) mil/mm3 Hgb (11.6-15.3) gm/dL Hct (35.0-46.0) % MCV (80.0-100.0) fL MCH (27.0-34.0) pg MCHC (32.0-36.0) % RDW (11.6-17.2) % Plt Count (150-450) th/mm3 MPV (7.0-11.0) fL Prelim Diff (Auto) Neut % (Auto) (16.0-70.0) % Lymph % (Auto) (9.0-44.0) % Charles % (Auto) (0.0-8.0) % Eos % (Auto) (0.0-4.0) % Baso % (Auto) (0.0-2.0) % Neut # (Auto) (1.8-7.7) th/mm3 Lymph # (Auto) (1.0-4.8) th/mm3 Charles # (Auto) (0.0-0.9) th/mm3 Eos # (Auto) (0.0-0.4) th/mm3 Baso # (Auto) (0.0-0.2) th/mm3 WBC Differential Seg Neuts % (Manual) (16-70) % Band Neuts % (Manual) (0-6) % Lymphocytes % (Manual) (9-44) % Monocytes % (Manual) (0-8) % Abs Neuts (Manual) (1.8-7.7) th/mm3 Differential Comment Platelet Estimate (Normal) Platelet Morphology (Normal) RBC Morphology (Normal) PT (9.8-11.6) sec INR Ratio APTT (24.3-30.1) sec Sodium (136-145) meq/L Potassium (3.5-5.1) meq/L Chloride (98-107) meq/L Carbon Dioxide (21.0-32.0) meq/L Anion Gap (5-15) meq/L BUN (7-18) mg/dL Creatinine (0.50-1.00) mg/dL Estimated GFR (>89) mL/min Random Glucose (74-106) mg/dL Lactic Acid 0.9 (0.4-2.0) mmol/L Calcium (8.5-10.1) mg/dL Total Bilirubin (0.2-1.0) mg/dL AST (15-37) U/L ALT (10-53) U/L Alkaline Phosphatase (45-117) U/L Total Creatine Kinase (26-192) U/L Troponin I (0.02-0.05) ng/mL Total Protein (6.4-8.2) g/dL Albumin (3.4-5.0) g/dL TSH (0.358-3.740) uIU/mL Urine Color Yellow (Yellw/Straw) Urine Clarity Cloudy H (Clear) Urine pH 6.0 (5.0-8.5) Ur Specific [place] 1.005 (1.002-1.035) Urine Protein 30 H (Neg-Trace) mg/dL Urine Glucose (UA) Negative (Negative) mg/dL Urine Ketones Negative (Negative) mg/dL Urine Occult Blood Moderate H (Negative) Urine Nitrate Positive H (Negative) Urine Bilirubin Negative (Negative) Urine Urobilinogen Less than 2 (Less than 2) mg/dL Ur Leukocyte Esterase Large H (Negative) Urine RBC 3 (0-3) /hpf Urine WBC 73 H (0-5) /hpf Urine WBC Clumps Many H (None) Ur Squamous Epith Cells 1 (0-5) /hpf Urine Bacteria Many H (None) /hpf Micro UA Comment Cath-culture ind Ur Microscopic Review Not Reportable Urine Culture Comments Cath-cult indicated Urine Opiates Screen Neg (Neg) Ur Barbiturates Screen Neg (Neg) Ur Amphetamines Screen Neg (Neg) U Benzodiazepines Scrn Neg (Neg) Urine Cocaine Screen Neg (Neg) U Cannabinoids Screen Neg (Neg) Imaging Data Radiologist's impression: Chest X-Ray 02/20/18 11:54 CONCLUSION: Chronic appearing interstitial changes. No acute abnormality. Head CT 02/20/18 11:54 CONCLUSION: 1. Negative CT Head non contrast. . ECG Data Attestation: I personally reviewed and interpreted this ECG as follows: Interpretation: Rate: 78 BPM Rhythm: Sinus arrhythmia [place]: Normal Intervals: Normal intervals, no blocks, QTc 376 ms Q waves: None T waves: Upright, no inversions ST segments: No elevations or depressions Impression: Non-specific EKG, no changes as compared to EKG from 08/14/2008. Discharge Plan Discharge Disposition Patient Disposition: 30 Still Patient Discharge Condition Condition: Stable Discharge Details Diagnosis: Acute UTI, SIRS (systemic inflammatory response syndrome), Alteration in activity Physicians Team ED Provider: Katey Dee ED Midlevel Provider: Mariely Cruz Primary Care Provider: Levy Bunch Attending Provider: Jael Medrano Status ED Status: Admitted Patient
[2018-02-20 13:16] LABS: Baso % (Auto) 0.2 % (0.0-2.0); Hematocrit 40.9 % (35.0-46.0); Hemoglobin 13.3 gm/dL (11.6-15.3); Lymph # (Auto) 0.7 th/mm3 (1.0-4.8); Lymph % (Auto) 3.8 % (9.0-44.0); Mean Corpuscular HGB Conc 32.5 % (32.0-36.0); Mean Corpuscular Hemoglobin 30.2 pg (27.0-34.0); Mean Platelet Volume 7.4 fL (7.0-11.0); Mono # (Auto) 1.7 th/mm3 (0.0-0.9); Mono % (Auto) 9.8 % (0.0-8.0); Neut # (Auto) 15.3 th/mm3 (1.8-7.7); Neut % (Auto) 86.2 % (16.0-70.0); Platelet Count 221 th/mm3 (150-450); Red Cell Distribution Width 13.5 % (11.6-17.2); White Blood Count 17.8 th/mm3 (4.0-11.0)
[2018-02-20 13:28] LABS: Activated Partial Thrombo Time 25.9 sec (24.3-30.1); INR 1.2 Ratio; Prothrombin Time 11.7 sec (9.8-11.6)
[2018-02-20 13:43] LABS: Lymphocytes 6 % (9-44); Monocytes 10 % (0-8)
[2018-02-20 13:44] LABS: Platelet Estimate Normal (Normal); Platelet Morphology Normal (Normal); RBC Morphology Normal (Normal)
[2018-02-20] MEDS ORDERED: Piperacil/Tazo 4.5 GM Premix 4.5 GM/100 ML BAG IV.SIG STA (13:46)
[2018-02-20] MEDS ORDERED: Vancomycin Inj 1,000 MG in Sodium Chlor 0.9% Inj 250 ML IV.SIG STA (13:46)
[2018-02-20 13:50] LABS: Alanine Aminotransferase 18 U/L (10-53); Albumin 2.6 g/dL (3.4-5.0); Anion Gap 10 meq/L (5-15); Aspartate Aminotransferase 20 U/L (15-37); Blood Urea Nitrogen 15 mg/dL (7-18); Calcium 8.9 mg/dL (8.5-10.1); Carbon Dioxide 27.2 meq/L (21.0-32.0); Chloride 96 meq/L (98-107); Glomerular Filtration Rate 49 mL/min (>89); Glucose,Random 145 mg/dL (74-106); Sodium 133 meq/L (136-145)
[2018-02-20 13:55] LABS: Potassium 3.7 meq/L (3.5-5.1)
[2018-02-20 13:56] LABS: Alkaline Phosphatase 82 U/L (45-117); Thyroid Stimulating Hormone 0.172 uIU/mL (0.358-3.740); Total Protein 7.2 g/dL (6.4-8.2)
[2018-02-20 14:00] LABS: Creatine Kinase 98 U/L (26-192)
[2018-02-20 15:05] LABS: Amphetamine Screen,Urine Neg (Neg); Bacteria,Urine Many /hpf; Barbiturate Screen,Urine Neg (Neg); Bilirubin,Urine Negative (Negative); Cannabinoid Screen,Urine Neg (Neg); Clarity,Urine Cloudy (Clear); Cocaine Screen,Urine Neg (Neg); Color,Urine Yellow (Yellw/Straw); Glucose,Urine (UA) Negative (Negative); Leukocyte Esterase,Urine Large (Negative); Nitrite,Urine Positive (Negative); Specific Gravity,Urine 1.005 (1.002-1.035); Squamous Epithelial Cell,Urine 1 /hpf (0-5)
[2018-02-20 15:12] LABS: Opiate Screen,Urine Neg (Neg)
--- NOTE | 2018-02-20 18:15 | P.HPFP ---
History of Present Illness Primary Care Physician: Levy Bunch <Jael Medrano 02/21/18 12:35> Levy Bunch <Mary De LeonJeimy - 02/20/18 18:15> Chief Complaint: not feeling well, chills <Allie Huerta V 02/20/18 18 :15> History of Present Illness: 73 yr old female with hx of hypothyroidism, sleep apnea, diabetes, fibromyalgia, osteoarthritis, hypercholesteremia, and DVT within the last year, presented to the ED with a 4 day history of not feeling well. She has been having chills, nausea, but no vomiting, decreased appetite, and loose stools when eating, for the past 4 days. She was found to have a UTI in the ED, but has had no symptoms of burning, hesitancy, or foul smelling urine. She has increased frequency and has had incontinence due to not making it to the restroom. Denies blood in the urine or stool. She has also had intermittent headaches. She denies fever, shortness of breath, chest pain, and leg pain. Allergies and medications reviewed with patient Social hx: lives with , has cats at home. Denies smoking, drinking, or recreational drug use. Used to be an RN at [employer]. <Allie Huerat V 02/20/18 18:38> - Diagnosis (1) Acute UTI (2) TANIYA (acute kidney injury) (3) Diabetes (4) Fibromyalgia (5) Obstructive sleep apnea (6) Hypothyroidism (7) Hypercholesteremia (8) Hx of deep venous thrombosis (9) Nutrition, metabolism, and development symptoms (10) DVT prophylaxis <Jael Medrano 02/21/18 12:35> (1) Acute UTI (2) TANIYA (acute kidney injury) (3) Diabetes (4) Fibromyalgia (5) Obstructive sleep apnea (6) Hypothyroidism (7) Hypercholesteremia (8) Hx of deep venous thrombosis (9) Nutrition, metabolism, and development symptoms (10) DVT prophylaxis <Mary De LeonAllie Kirk 02/20/18 18:15> Inpatient Certification: I certify that the inpatient services were ordered in accordance with Medicare regulations governing the order. This includes certification that hospital inpatient services are reasonable and necessary and in the case of services not specified as inpatient-only under 42 CFR 419.22(n), that they are appropriately provided as inpatient services in accordance to with the 2-midnight benchmark under 43 CFR 412.3(e) <LorettakymJael Reji - 02/21/18 12:35> I certify that the inpatient services were ordered in accordance with Medicare regulations governing the order. This includes certification that hospital inpatient services are reasonable and necessary and in the case of services not specified as inpatient-only under 42 CFR 419.22(n), that they are appropriately provided as inpatient services in accordance to with the 2-midnight benchmark under 43 CFR 412.3(e) <Mary De LeonJeimy 02/20/18 18:15> Review of Systems Constitutional: Reports chills, Reports headache(s), Reports lack of energy, Reports malaise <Mary De LeonJeiym 02/20/18 18:15> Cardiovascular: Denies chest pain, Denies shortness of breath <Mary De Leon Jeimy 02/20/18 18:15> Respiratory: Denies chest congestion, Denies cough <Mary De LeonJeimy 18:15> Gastrointestinal: Reports loose stools, Reports nausea, Denies abdominal pain, Denies bright, red blood in stools, Denies vomiting <Mary De Leon,Jeimy 02/20/18 18:15> Genitourinary: Reports urinary incontinence, Reports urinary urgency, Denies blood in urine, Denies difficulty starting urination, Denies difficulty urinating, Denies painful urination <Mary De LeonJeimy 02/20/18 18:15> Hematologic/Lymphatic: Denies other <Mary De LeonJeimy 02/20/18 18:15> Comments: Denies s/s of DVT <Mary De Leon,Jeimy 02/20/18 18:15> Allergic/Immunologic: Reports GI upset with certain foods <Mary De Leon Jeimy 02/20/18 18:15> PMFSH - History History Provided By: Patient, Family Member <Mary De Loen,Jeimy 02/20/18 18:15> - Medical History Medical History: Medical History (Last Reviewed 02/20/18 @ 12:36 by DAVID Francis) Fibromyalgia Hypothyroid Sleep apnea DVT (deep venous thrombosis) Diabetes High cholesterol <Jael Medrano 02/21/18 12:35> Medical History (Last Reviewed 02/20/18 @ 12:36 by DAVID Francis) Fibromyalgia Hypothyroid Sleep apnea DVT (deep venous thrombosis) Diabetes High cholesterol <Allie Huerta 02/20/18 18:15> - Tobacco History Second Hand Smoke Exposure: Yes <Allie Huerta V 02/20/18 18:15> Tobacco Use In Past 30 Days: Yes <Allie Huerta V 02/20/18 18:15> Smoking Status: Never smoker <Allie Huerta V 02/20/18 18:15> Tobacco Type: Cigarettes <Allie Huerta V 02/20/18 18:15> - Alcohol History How Often Do You Have a Drink Containing Alcohol: 2 to 3 times a week <Allie Huerta V 02/20/18 18:15> - Substance Use History Substance History: No History of Abuse <Allie Huerta V 02/20/18 18:15 > - Travel History Recent Travel in the [facility] Within the Last 8 Weeks: No <Allie Huerta V 02/20/18 18:15> Recent Travel Out of the Country Within the Last 8 Weeks: No <Allie Huerta V 02/20/18 18:15> - Immunization History Tetanus Immunization: <5 Years <Allie Huerta V 02/20/18 18:15> Hx Influenza Vaccine This Season: Yes <Allie Huerta V 02/20/18 18:15> Medications and Allergies Allergies Allergy/AdvReac Type Severity Reaction Status Date / Time adhesive Allergy Severe Rash Verified 01/28/18 22:42 mercury salts Allergy Severe RASH,EDEMA, Verified 01/28/18 22:42 PUSTULES neomycin Allergy Severe VAGINITIS Verified 01/28/18 22:42 povidone-iodine Allergy Severe Rash,EDEMA, Verified 01/28/18 22:42 PUSTULES <Jael Medrano 02/21/18 12:35> Home Medications Medication Instructions Recorded Confirmed Type levothyroxine 150 mcg PO DAILY 01/28/18 02/20/18 History omeprazole magnesium [Prilosec OTC] 20 mg PO DAILY 01/28/18 02/20/18 History duloxetine [Cymbalta] 60 mg PO DAILY 02/20/18 02/20/18 History lovastatin 20 mg PO DAILY 02/20/18 02/20/18 History <Jael Medrano R - 02/21/18 12:35> Active Medications: Active Medications Acetaminophen (Tylenol) 650 mg PO Q4H PRN PRN Reason: Temp > 100.4 Last Admin: 02/21/18 03:53 Dose: 650 mg Duloxetine HCl (Cymbalta) 60 mg PO DAILY [facility] Last Admin: 02/21/18 08:09 Dose: 60 mg Heparin Sodium (Porcine) (Heparin Inj) 5,000 units SQ Q8H [facility] Last Admin: 02/21/18 09:12 Dose: 5,000 units Sodium Chloride (Ns Inj) 1,000 mls @ 140 mls/hr IV.CONT .Q7H9M [facility] Last Admin: 02/21/18 10:17 Dose: 140 mls/hr Piperacillin/Tazobactam/Dextrose (Zosyn 4.5 Gm Premix) 4.5 gm in 100 mls @ 200 mls/hr IV.SIG Q6H [facility] Last Admin: 02/21/18 12:25 Dose: 200 mls/hr Insulin Aspart (Novolog Insulin Correctional Sugar Inj) 0 unit SQ 08,12,17,21 [facility]; Protocol Last Admin: 02/21/18 12:26 Dose: Not Given Levothyroxine Sodium (Synthroid) 150 mcg PO DAILY@0600 [facility] Last Admin: 02/21/18 06:15 Dose: 150 mcg Ondansetron HCl (Zofran Inj) 4 mg IV.PUSH Q6H PRN PRN Reason: NAUSEA OR VOMITING Pantoprazole Sodium (Protonix) 20 mg PO DAILY [facility] Last Admin: 02/21/18 08:09 Dose: 20 mg Pravastatin Sodium (Pravachol) 20 mg PO DAILY [facility] Last Admin: 02/21/18 08:09 Dose: 20 mg Sodium Chloride (Ns Flush) 2 ml IV.FLUSH PRN PRN PRN Reason: FLUSH AFTER USING IV ACCESS <Jael Medrano R - 02/21/18 12:35> Active Medications Acetaminophen (Tylenol) 650 mg PO Q4H PRN PRN Reason: Temp > 100.4 Heparin Sodium (Porcine) (Heparin Inj) 5,000 units SQ Q8H [facility] Ondansetron HCl (Zofran Inj) 4 mg IV.PUSH Q6H PRN PRN Reason: NAUSEA OR VOMITING Sodium Chloride (Ns Flush) 2 ml IV.FLUSH PRN PRN PRN Reason: FLUSH AFTER USING IV ACCESS <Allie Huerta V - 02/20/18 18:15> Exam Vital signs: Vital Signs 02/20/18 13:00 02/20/18 15:28 02/20/18 18:52 Temperature 102.9 F H Pulse Rate 84 Respiratory Rate 20 Blood Pressure 156/70 H Pulse Oximetry 95 95 93 L 02/20/18 20:00 02/21/18 00:00 02/21/18 04:00 Temperature 98.9 F 98.1 F 102.3 F H Pulse Rate 82 72 98 H Respiratory Rate 18 18 20 Blood Pressure 104/59 L 138/63 174/77 H Pulse Oximetry 92 L 98 100 02/21/18 06:30 02/21/18 08:00 02/21/18 09:00 Temperature 98.2 F 97.5 F L Pulse Rate 80 75 76 Respiratory Rate 18 20 Blood Pressure 121/58 L 108/67 Pulse Oximetry 93 L 94 L Intake & Output 02/20/18 02/21/18 02/21/18 18:59 06:59 18:59 Intake Total 350 / 350 1730 / 1730 1100 / 1100 Output Total 1000 / 1000 Balance 350 / 350 730 / 730 1100 / 1100 Weight 98.1 kg Intake: IV 350 / 350 1100 / 1100 1100 / 1100 NS Inj 1,000 ML @ 140 mls/hr IV 1000 / 1000 1000 / 1000 .CONT .Q7H9M [facility]ENNIE Rx#:[id number] Merrem Inj 1,000 MG In NS Inj 100 / 100 100 / 100 100 ML @ 200 mls/hr IV.SIG Q12H [facility]ENN[facility] Rx#:[id number] Zosyn 4.5 GM Premix 4.5 gm In 100 / 100 100 ml @ 200 mls/hr IV.SIG STAT STA Rx#:[id number] Vancomycin Inj 1,000 MG In NS 250 / 250 Inj 250 ML @ 250 mls/hr IV.SIG STAT STA Rx#:[id number] Oral 630 / 630 Output: Urine 1000 / 1000 Other: # Voids 3 Date of Last Bowel Movement 02/20/18 02/20/18 Weight On Admission 98.1 kg <Jael Medrano R - 02/21/18 12:35> Vital Signs 02/20/18 11:33 02/20/18 11:40 02/20/18 13:00 Temperature 98.5 F 99.5 F Pulse Rate 87 87 Respiratory Rate 20 Blood Pressure 114/55 L 114/55 L Pulse Oximetry 95 95 95 02/20/18 15:28 Temperature Pulse Rate Respiratory Rate Blood Pressure Pulse Oximetry 95 Intake & Output 02/19/18 02/20/18 02/20/18 18:59 06:59 18:59 Intake Total 350 / 350 Balance 350 / 350 Weight 99.79 kg Intake: IV 350 / 350 Zosyn 4.5 GM Premix 4.5 gm In 100 / 100 100 ml @ 200 mls/hr IV.SIG STAT STA Rx#:[id number] Vancomycin Inj 1,000 MG In NS 250 / 250 Inj 250 ML @ 250 mls/hr IV.SIG STAT STA Rx#:[id number] <Allie Huerta V - 02/20/18 18:15> Narrative: GENERAL: Well-nourished, well-developed patient. Visually being cold, covered with blankets SKIN: Warm and dry. HEAD: Normocephalic and atraumatic. EYES: No scleral icterus. No injection or drainage. ENT: No nasal drainage noted. Mucous membranes pink. Airway patent. CARDIOVASCULAR: Regular rate and rhythm without murmurs, gallops, or rubs. RESPIRATORY: Breath sounds equal bilaterally. No accessory muscle use. ABDOMEN/GI: Abdomen soft, non-tender, bowel sounds present, no rebound, no guarding EXTREMITIES: No cyanosis or edema. BACK: Nontender without obvious deformity. No CVA tenderness. NEUROLOGICAL: Awake and alert. Motor and sensory grossly within normal limits. Normal speech. <Allie Huerta V - 02/20/18 18:15> Results - Labs Result diagrams: 02/21/18 05:39 02/21/18 05:39 <Jael Medrano Reji - 02/21/18 12:35> Abnormal lab results 02/20/18 02/20/18 02/20/18 Range/Units 12:38 12:38 12:38 WBC 17.8 H (4.0-11.0) th/mm3 Neut % (Auto) 86.2 H (16.0-70.0) % Lymph % (Auto) 3.8 L (9.0-44.0) % Holmes % (Auto) 9.8 H (0.0-8.0) % Neut # (Auto) 15.3 H (1.8-7.7) th/mm3 Lymph # (Auto) 0.7 L (1.0-4.8) th/mm3 Holmes # (Auto) 1.7 H (0.0-0.9) th/mm3 Seg Neuts % (Manual) 71 H (16-70) % Band Neuts % (Manual) 13 H (0-6) % Lymphocytes % (Manual) 6 L (9-44) % Monocytes % (Manual) 10 H (0-8) % Myelocytes % (Man) (0-0) % Plasma Cell % (Manual) (0-0) % Abs Neuts (Manual) 15.0 H (1.8-7.7) th/mm3 PT 11.7 H (9.8-11.6) sec Sodium 133 L (136-145) meq/L Potassium (3.5-5.1) meq/L Chloride 96 L (98-107) meq/L Creatinine 1.10 H (0.50-1.00) mg/dL Estimated GFR 49 L (>89) mL/min POC Glucose (68-110) mg/dl Random Glucose 145 H (74-106) mg/dL Total Bilirubin 1.1 H (0.2-1.0) mg/dL AST (15-37) U/L Troponin I Less than 0.02 L (0.02-0.05) ng/mL Albumin 2.6 L (3.4-5.0) g/dL TSH 0.172 L (0.358-3.740) uIU/mL Urine Clarity (Clear) Urine Protein (Neg-Trace) mg/dL Urine Occult Blood (Negative) Urine Nitrate (Negative) Ur Leukocyte Esterase (Negative) Urine WBC (0-5) /hpf Urine WBC Clumps (None) Urine Bacteria (None) /hpf 02/20/18 02/20/18 02/21/18 Range/Units 13:53 19:44 05:39 WBC 15.7 H (4.0-11.0) th/mm3 Neut % (Auto) (16.0-70.0) % Lymph % (Auto) (9.0-44.0) % Holmes % (Auto) (0.0-8.0) % Neut # (Auto) (1.8-7.7) th/mm3 Lymph # (Auto) (1.0-4.8) th/mm3 Holmes # (Auto) (0.0-0.9) th/mm3 Seg Neuts % (Manual) (16-70) % Band Neuts % (Manual) 22 H (0-6) % Lymphocytes % (Manual) 4 L (9-44) % Monocytes % (Manual) (0-8) % Myelocytes % (Man) 1 H (0-0) % Plasma Cell % (Manual) 2 H (0-0) % Abs Neuts (Manual) 13.8 H (1.8-7.7) th/mm3 PT (9.8-11.6) sec Sodium (136-145) meq/L Potassium (3.5-5.1) meq/L Chloride (98-107) meq/L Creatinine (0.50-1.00) mg/dL Estimated GFR (>89) mL/min POC Glucose 138 H (68-110) mg/dl Random Glucose (74-106) mg/dL Total Bilirubin (0.2-1.0) mg/dL AST (15-37) U/L Troponin I (0.02-0.05) ng/mL Albumin (3.4-5.0) g/dL TSH (0.358-3.740) uIU/mL Urine Clarity Cloudy H (Clear) Urine Protein 30 H (Neg-Trace) mg/dL Urine Occult Blood Moderate H (Negative) Urine Nitrate Positive H (Negative) Ur Leukocyte Esterase Large H (Negative) Urine WBC 73 H (0-5) /hpf Urine WBC Clumps Many H (None) Urine Bacteria Many H (None) /hpf 02/21/18 02/21/18 Range/Units 05:39 12:26 WBC (4.0-11.0) th/mm3 Neut % (Auto) (16.0-70.0) % Lymph % (Auto) (9.0-44.0) % Holmes % (Auto) (0.0-8.0) % Neut # (Auto) (1.8-7.7) th/mm3 Lymph # (Auto) (1.0-4.8) th/mm3 Holmes # (Auto) (0.0-0.9) th/mm3 Seg Neuts % (Manual) (16-70) % Band Neuts % (Manual) (0-6) % Lymphocytes % (Manual) (9-44) % Monocytes % (Manual) (0-8) % Myelocytes % (Man) (0-0) % Plasma Cell % (Manual) (0-0) % Abs Neuts (Manual) (1.8-7.7) th/mm3 PT (9.8-11.6) sec Sodium 135 L (136-145) meq/L Potassium 3.0 L (3.5-5.1) meq/L Chloride (98-107) meq/L Creatinine (0.50-1.00) mg/dL Estimated GFR 55 L (>89) mL/min POC Glucose 115 H (68-110) mg/dl Random Glucose 128 H (74-106) mg/dL Total Bilirubin (0.2-1.0) mg/dL AST 13 L (15-37) U/L Troponin I (0.02-0.05) ng/mL Albumin 2.3 L (3.4-5.0) g/dL TSH (0.358-3.740) uIU/mL Urine Clarity (Clear) Urine Protein (Neg-Trace) mg/dL Urine Occult Blood (Negative) Urine Nitrate (Negative) Ur Leukocyte Esterase (Negative) Urine WBC (0-5) /hpf Urine WBC Clumps (None) Urine Bacteria (None) /hpf Short CBC 02/20/18 02/21/18 Range/Units 12:38 05:39 WBC 17.8 H 15.7 H (4.0-11.0) th/mm3 Hgb 13.3 13.0 (11.6-15.3) gm/dL Hct 40.9 37.9 (35.0-46.0) % Plt Count 221 244 (150-450) th/mm3 BMP 02/20/18 02/21/18 12:38 05:39 Sodium 133 L 135 L Potassium 3.7 3.0 L Chloride 96 L 100 Carbon Dioxide 27.2 22.3 BUN 15 16 Creatinine 1.10 H 0.99 Calcium 8.9 8.7 Cardiac Enzymes 02/20/18 Range/Units 12:38 Total Creatine Kinase 98 (26-192) U/L Troponin I Less than 0.02 L (0.02-0.05) ng/mL Liver Function 02/20/18 02/21/18 Range/Units 12:38 05:39 Total Bilirubin 1.1 H 0.7 (0.2-1.0) mg/dL AST 20 13 L (15-37) U/L ALT 18 18 (10-53) U/L Alkaline Phosphatase 82 78 (45-117) U/L Albumin 2.6 L 2.3 L (3.4-5.0) g/dL Urine 02/20/18 Range/Units 13:53 Urine Color Yellow (Yellw/Straw) Urine Clarity Cloudy H (Clear) Urine pH 6.0 (5.0-8.5) Ur Specific [place] 1.005 (1.002-1.035) Urine Protein 30 H (Neg-Trace) mg/dL Urine Glucose (UA) Negative (Negative) mg/dL <Jael Medrano - 02/21/18 12:35> Abnormal lab results 02/20/18 02/20/18 02/20/18 Range/Units 12:38 12:38 12:38 WBC 17.8 H (4.0-11.0) th/mm3 Neut % (Auto) 86.2 H (16.0-70.0) % Lymph % (Auto) 3.8 L (9.0-44.0) % Holmes % (Auto) 9.8 H (0.0-8.0) % Neut # (Auto) 15.3 H (1.8-7.7) th/mm3 Lymph # (Auto) 0.7 L (1.0-4.8) th/mm3 Holmes # (Auto) 1.7 H (0.0-0.9) th/mm3 Seg Neuts % (Manual) 71 H (16-70) % Band Neuts % (Manual) 13 H (0-6) % Lymphocytes % (Manual) 6 L (9-44) % Monocytes % (Manual) 10 H (0-8) % Abs Neuts (Manual) 15.0 H (1.8-7.7) th/mm3 PT 11.7 H (9.8-11.6) sec Sodium 133 L (136-145) meq/L Chloride 96 L (98-107) meq/L Creatinine 1.10 H (0.50-1.00) mg/dL Estimated GFR 49 L (>89) mL/min Random Glucose 145 H (74-106) mg/dL Total Bilirubin 1.1 H (0.2-1.0) mg/dL Troponin I Less than 0.02 L (0.02-0.05) ng/mL Albumin 2.6 L (3.4-5.0) g/dL TSH 0.172 L (0.358-3.740) uIU/mL Urine Clarity (Clear) Urine Protein (Neg-Trace) mg/dL Urine Occult Blood (Negative) Urine Nitrate (Negative) Ur Leukocyte Esterase (Negative) Urine WBC (0-5) /hpf Urine WBC Clumps (None) Urine Bacteria (None) /hpf 02/20/18 Range/Units 13:53 WBC (4.0-11.0) th/mm3 Neut % (Auto) (16.0-70.0) % Lymph % (Auto) (9.0-44.0) % Holmes % (Auto) (0.0-8.0) % Neut # (Auto) (1.8-7.7) th/mm3 Lymph # (Auto) (1.0-4.8) th/mm3 Holmes # (Auto) (0.0-0.9) th/mm3 Seg Neuts % (Manual) (16-70) % Band Neuts % (Manual) (0-6) % Lymphocytes % (Manual) (9-44) % Monocytes % (Manual) (0-8) % Abs Neuts (Manual) (1.8-7.7) th/mm3 PT (9.8-11.6) sec Sodium (136-145) meq/L Chloride (98-107) meq/L Creatinine (0.50-1.00) mg/dL Estimated GFR (>89) mL/min Random Glucose (74-106) mg/dL Total Bilirubin (0.2-1.0) mg/dL Troponin I (0.02-0.05) ng/mL Albumin (3.4-5.0) g/dL TSH (0.358-3.740) uIU/mL Urine Clarity Cloudy H (Clear) Urine Protein 30 H (Neg-Trace) mg/dL Urine Occult Blood Moderate H (Negative) Urine Nitrate Positive H (Negative) Ur Leukocyte Esterase Large H (Negative) Urine WBC 73 H (0-5) /hpf Urine WBC Clumps Many H (None) Urine Bacteria Many H (None) /hpf Short CBC 02/20/18 Range/Units 12:38 WBC 17.8 H (4.0-11.0) th/mm3 Hgb 13.3 (11.6-15.3) gm/dL Hct 40.9 (35.0-46.0) % Plt Count 221 (150-450) th/mm3 BMP 02/20/18 12:38 Sodium 133 L Potassium 3.7 Chloride 96 L Carbon Dioxide 27.2 BUN 15 Creatinine 1.10 H Calcium 8.9 Cardiac Enzymes 02/20/18 Range/Units 12:38 Total Creatine Kinase 98 (26-192) U/L Troponin I Less than 0.02 L (0.02-0.05) ng/mL Liver Function 02/20/18 Range/Units 12:38 Total Bilirubin 1.1 H (0.2-1.0) mg/dL AST 20 (15-37) U/L ALT 18 (10-53) U/L Alkaline Phosphatase 82 (45-117) U/L Albumin 2.6 L (3.4-5.0) g/dL Urine 02/20/18 Range/Units 13:53 Urine Color Yellow (Yellw/Straw) Urine Clarity Cloudy H (Clear) Urine pH 6.0 (5.0-8.5) Ur Specific [place] 1.005 (1.002-1.035) Urine Protein 30 H (Neg-Trace) mg/dL Urine Glucose (UA) Negative (Negative) mg/dL <Allie Huerta V - 02/20/18 18:15> - Imaging Impressions Chest X-Ray 02/20/18 11:54 CONCLUSION: Chronic appearing interstitial changes. No acute abnormality. Head CT 02/20/18 11:54 CONCLUSION: 1. Negative CT Head non contrast. . <Allie Huerta V 02/20/18 18:15> Caprini VTE Risk Assessment Caprini VTE Risk Assessment: No/Low Risk (score <= 1) <Allie Huerta V 02/20/18 18:15> Caprini Risk Assessment Model: Point Value = 1 Point Value = 2 Point Value = 3 Point Value = 5 Age 41-60 Minor surgery BMI > 25 kg/m2 Swollen legs Varicose veins or History of unexplained or recurrent spontaneous Oral contraceptives or hormone replacement Sepsis (< 1 month) Serious lung disease, including pneumonia (< 1 month) Abnormal pulmonary function Acute myocardial infarction Congestive heart failure (< 1 month) History of inflammatory bowel disease Medical patient at bed rest Age 61-74 Arthroscopic surgery Major open surgery (> 45 min) Laparoscopic surgery (> 45 min) Malignancy Confined to bed (> 72 hours) Immobilizing plaster cast Central venous access Age >= 75 History of VTE Family history of VTE Factor V Leiden Prothrombin [id number] Lupus anticoagulant Anticardiolipin antibodies Elevated serum homocysteine Heparin-induced thrombocytopenia Other congenital or acquired thrombophilia Stroke (< 1 month) Elective arthroplasty Hip, pelvis, or leg fracture Acute spinal cord injury (< 1 month) <Jael Medrano 02/21/18 12:35> Point Value = 1 Point Value = 2 Point Value = 3 Point Value = 5 Age 41-60 Minor surgery BMI > 25 kg/m2 Swollen legs Varicose veins or History of unexplained or recurrent spontaneous Oral contraceptives or hormone replacement Sepsis (< 1 month) Serious lung disease, including pneumonia (< 1 month) Abnormal pulmonary function Acute myocardial infarction Congestive heart failure (< 1 month) History of inflammatory bowel disease Medical patient at bed rest Age 61-74 Arthroscopic surgery Major open surgery (> 45 min) Laparoscopic surgery (> 45 min) Malignancy Confined to bed (> 72 hours) Immobilizing plaster cast Central venous access Age >= 75 History of VTE Family history of VTE Factor V Leiden Prothrombin [id number] Lupus anticoagulant Anticardiolipin antibodies Elevated serum homocysteine Heparin-induced thrombocytopenia Other congenital or acquired thrombophilia Stroke (< 1 month) Elective arthroplasty Hip, pelvis, or leg fracture Acute spinal cord injury (< 1 month) <Allie Huerta V 02/20/18 18:15> Prophylaxis Regimen: Total Risk Factor Score Risk Level Prophylaxis Regimen 0-1 Low Early ambulation 2 Moderate Order ONE of the following: *Sequential Compression Device (SCD) *Heparin 5000 units SQ BID 3-4 Higher Order ONE of the following medications: *Heparin 5000 units SQ TID *Enoxaparin/Lovenox 40 mg SQ daily (WT < 150 kg, CrCl > 30 mL/min) *Enoxaparin/Lovenox 30 mg SQ daily (WT < 150 kg, CrCl > 10-29 mL/min) *Enoxaparin/Lovenox 30 mg SQ BID (WT < 150 kg, CrCl > 30 mL/min) AND/OR *Sequential Compression Device (SCD) 5 or more Highest Order ONE of the following medications: *Heparin 5000 units SQ TID (Preferred with Epidurals) *Enoxaparin/Lovenox 40 mg SQ daily (WT < 150 kg, CrCl > 30 mL/min) *Enoxaparin/Lovenox 30 mg SQ daily (WT < 150 kg, CrCl > 10-29 mL/min) *Enoxaparin/Lovenox 30 mg SQ BID (WT < 150 kg, CrCl > 30 mL/min) AND *Sequential Compression Device (SCD) <Jael Medrano - 02/21/18 12:35> Total Risk Factor Score Risk Level Prophylaxis Regimen 0-1 Low Early ambulation 2 Moderate Order ONE of the following: *Sequential Compression Device (SCD) *Heparin 5000 units SQ BID 3-4 Higher Order ONE of the following medications: *Heparin 5000 units SQ TID *Enoxaparin/Lovenox 40 mg SQ daily (WT < 150 kg, CrCl > 30 mL/min) *Enoxaparin/Lovenox 30 mg SQ daily (WT < 150 kg, CrCl > 10-29 mL/min) *Enoxaparin/Lovenox 30 mg SQ BID (WT < 150 kg, CrCl > 30 mL/min) AND/OR *Sequential Compression Device (SCD) 5 or more Highest Order ONE of the following medications: *Heparin 5000 units SQ TID (Preferred with Epidurals) *Enoxaparin/Lovenox 40 mg SQ daily (WT < 150 kg, CrCl > 30 mL/min) *Enoxaparin/Lovenox 30 mg SQ daily (WT < 150 kg, CrCl > 10-29 mL/min) *Enoxaparin/Lovenox 30 mg SQ BID (WT < 150 kg, CrCl > 30 mL/min) AND *Sequential Compression Device (SCD) <Allie Huerta V - 02/20/18 18:15> Assessment and Plan - Assessment (1) Acute UTI Code(s): N39.0 - Status: Acute (2) TANIYA (acute kidney injury) Code(s): N17.9 - Status: Acute (3) Diabetes Code(s): E11.9 - Type 2 diabetes mellitus without complications Status: Chronic (4) Fibromyalgia Code(s): M79.7 - Fibromyalgia Status: Chronic (5) Obstructive sleep apnea Code(s): G47.33 - Obstructive sleep apnea (adult) (pediatric) Status: Chronic (6) Hypothyroidism Code(s): E03.9 - Hypothyroidism, unspecified Status: Chronic (7) Hypercholesteremia Code(s): E78.00 - Pure hypercholesterolemia, unspecified Status: Chronic (8) Hx of deep venous thrombosis Code(s): Z86.718 - Status: Chronic (9) Nutrition, metabolism, and development symptoms Code(s): R63.8 - Status: Acute (10) DVT prophylaxis Status: Acute <Jael Medrano - 02/21/18 12:35> (1) Acute UTI Code(s): N39.0 - Urinary tract infection, site not specified Status: Acute (2) TANIYA (acute kidney injury) Code(s): N17.9 - Acute kidney failure, unspecified Status: Acute (3) Diabetes Code(s): E11.9 - Type 2 diabetes mellitus without complications Status: Chronic (4) Fibromyalgia Code(s): M79.7 - Fibromyalgia Status: Chronic (5) Obstructive sleep apnea Code(s): G47.33 - Obstructive sleep apnea (adult) (pediatric) Status: Chronic (6) Hypothyroidism Code(s): E03.9 - Hypothyroidism, unspecified Status: Chronic (7) Hypercholesteremia Code(s): E78.00 - Pure hypercholesterolemia, unspecified Status: Chronic (8) Hx of deep venous thrombosis Code(s): Z86.718 - Personal history of other venous thrombosis and embolism Status: Chronic (9) Nutrition, metabolism, and development symptoms Code(s): R63.8 - Other symptoms and signs concerning food and fluid intake Status: Acute (10) DVT prophylaxis Status: Acute <Allie Huerta V - 02/20/18 18:15> - Assessment and Plan Discussed Condition With: 73 yr old female w/ PMH of diabetes, SAMARA, hypothyroidism, hypercholesteremia, fibromyalgia, osteoarthritis and hx of DVT, admitted to observation for uncomplicated UTI. Pt was seen and evaluated on ED where was found to have an UA positive with many bacteria, large leukocyte esterase, many WBC clumps, large occult blood, and positive nitrates. She had a lactic acid of 4, creatinine 1.1, and leukocytosis of 17.8, however she does not meet SIRS criteria since her vital signs are stable and within normal limits. No fevers. She received Vancomycin and Zosyn. We anticipate pt will transition to oral antibiotics tomorrow and will be discharged home pending clinical improvement. Plan: s/p Vanc and Zosyn in ED - Start Ceftriaxone 1g q24 hr tomorrow at 7 am - F/U urine cultures and blood cultures - Repeat CBC in AM - Tylenol for fever PRN - Diabetic diet, and low dose Novolog insulin sliding scale - TANIYA: avoid nephrotoxic drugs, maintenance fluids at 140ml/hr, repeat CMP in AM - Heparin 5,000 U SQ q8 hr and SDCs for DVT prophylaxis - Continue home medications of Cymbalta 60 mg for fibromyalgia, levothyroxine 150mcg for hypothyroidism, lovastatin 20 mg for hypercholesteremia, and 20mg of omeprazole for acid reflux. - Advised pt to bring her own CPAP machine from home <Allie Huerta V - 02/20/18 18:38> - Attending Attestation Patient discussed with resident team. Agree with the assessment and plan as above <Jael Medrano R - 02/21/18 12:35> <Allie Huerta V - Filed: 02/20/18 18:15> (3) Diabetes Qualifiers: Diabetes mellitus complication status: without complication <Jael Medrano Last Filed: 02/21/18 12:35> (3) Diabetes Qualifiers: Diabetes mellitus complication status: without complication <Allie Huerta V - Filed: 02/20/18 18:15> (3) Diabetes Qualifiers: Diabetes mellitus complication status: without complication <Jael Medrano - Last Filed: 02/21/18 12:35> (3) Diabetes Qualifiers: Diabetes mellitus complication status: without complication
[2018-02-20] MEDS: Acetaminophen 325 MG Tablet PO PRN (18:27)
[2018-02-20] MEDS: Heparin - SQ 10,000 UNITS/ML Vial SQ SCH (18:27)
[2018-02-20] MEDS: Sod Chloride 0.9% Inj 1,000 ML IV.CONT SCH (18:47)
[2018-02-20] MEDS: Duloxetine 60 MG DR Capsule PO SCH (18:48)
[2018-02-20] MEDS: Insulin NovoLOG Aspart Correctional Sugar Inj SQ SCH (20:18)
[2018-02-21] MEDS: Sod Chloride 0.9% Inj 1,000 ML IV.CONT SCH ×3 (02:44→17:39)
[2018-02-21] MEDS: Heparin - SQ 10,000 UNITS/ML Vial SQ SCH ×3 (02:48→17:38)
[2018-02-21] MEDS: Acetaminophen 325 MG Tablet PO PRN (03:53)
[2018-02-21] MEDS: Levothyroxine 150 MCG Tablet PO SCH (06:15)
[2018-02-21 06:56] LABS: Hematocrit 37.9 % (35.0-46.0); Mean Corpuscular HGB Conc 34.3 % (32.0-36.0); Mean Corpuscular Hemoglobin 31.2 pg (27.0-34.0); Mean Platelet Volume 7.3 fL (7.0-11.0); Platelet Count 244 th/mm3 (150-450); Red Blood Count 4.17 mil/mm3 (4.00-5.30); Red Cell Distribution Width 13.3 % (11.6-17.2); White Blood Count 15.7 th/mm3 (4.0-11.0)
[2018-02-21 07:24] LABS: Albumin 2.3 g/dL (3.4-5.0); Anion Gap 13 meq/L (5-15); Aspartate Aminotransferase 13 U/L (15-37); Blood Urea Nitrogen 16 mg/dL (7-18); Calcium 8.7 mg/dL (8.5-10.1); Carbon Dioxide 22.3 meq/L (21.0-32.0); Chloride 100 meq/L (98-107); Glomerular Filtration Rate 55 mL/min (>89); Glucose,Random 128 mg/dL (74-106); Sodium 135 meq/L (136-145)
[2018-02-21 07:25] LABS: Alanine Aminotransferase 18 U/L (10-53)
[2018-02-21 07:27] LABS: Alkaline Phosphatase 78 U/L (45-117); Total Protein 6.8 g/dL (6.4-8.2)
[2018-02-21 08:07] LABS: Lymphocytes 4 % (9-44); Monocytes 6 % (0-8); Myelocytes 1 % (0-0); Plasma Cells 2 % (0-0); Platelet Estimate Normal (Normal); Platelet Morphology Normal (Normal)
[2018-02-21] MEDS: Insulin NovoLOG Aspart Correctional Sugar Inj SQ SCH ×4 (08:09→20:32)
[2018-02-21] MEDS: Duloxetine 60 MG DR Capsule PO SCH (08:09)
[2018-02-21] MEDS: Pantoprazole Sodium 20 MG DR Tablet PO SCH (08:09)
--- NOTE | 2018-02-21 10:51 | P.PNADD ---
Addendum to Inpatient Note Reason for Addendum: Additional Documentation Additional information: Please see resident H&P from 02/20/18 for full documentation of the history and admission information. Patient was admitted for UTI with SIRS criteria and TANIYA SHe reports since admission she is much better, she is not feeling as weak as she was before. SHe denies urinary symptoms, reports chills and fevers through the night. Had an appetite this morning and ate all of her breakfast which is a big loom changer he past few days. She reports overall feeling much better. GENERAL: SKIN: Warm and dry. HEAD: Normocephalic. EYES: No scleral icterus. No injection or drainage. NECK: Supple, trachea midline. No JVD or lymphadenopathy. CARDIOVASCULAR: Regular rate and rhythm without murmurs, gallops, or rubs. RESPIRATORY: Breath sounds equal bilaterally. No accessory muscle use. GASTROINTESTINAL: Abdomen soft, non-tender, nondistended. MUSCULOSKELETAL: No cyanosis, or edema. BACK: Nontender without obvious deformity. No CVA tenderness. Vital Signs Temp Pulse Resp BP Pulse Ox 02/21/18 12:00 84 02/21/18 09:00 76 02/21/18 08:00 97.5 F L 75 20 108/67 94 L 02/21/18 06:30 98.2 F 80 18 121/58 L 93 L 02/21/18 04:00 102.3 F H 98 H 20 174/77 H 100 02/21/18 00:00 98.1 F 72 18 138/63 98 02/20/18 20:00 98.9 F 82 18 104/59 L 92 L 02/20/18 18:52 102.9 F H 84 20 156/70 H 93 L 02/20/18 15:28 95 Intake and Output 02/20/18 02/21/18 02/21/18 22:59 06:59 14:59 Intake Total 450 / 450 1630 / 1630 1200 / 1200 Output Total 1000 / 1000 Balance 450 / 450 630 / 630 1200 / 1200 Intake: IV 450 / 450 1000 / 1000 1200 / 1200 NS Inj 1,000 ML @ 140 mls/hr IV 1000 / 1000 1000 / 1000 .CONT .Q7H9M JENNIE Rx#:[id number] Merrem Inj 1,000 MG In NS Inj 100 / 100 100 / 100 100 ML @ 200 mls/hr IV.SIG Q12H JENNIE Rx#:[id number] Zosyn 4.5 GM Premix 4.5 gm In 100 / 100 100 / 100 100 ml @ 200 mls/hr IV.SIG Q6H JENNIE Rx#:[id number] Vancomycin Inj 1,000 MG In NS 250 / 250 Inj 250 ML @ 250 mls/hr IV.SIG STAT STA Rx#:[id number] Oral 630 / 630 Output: Urine 1000 / 1000 Other: # Voids 3 Date of Last Bowel Movement 02/20/18 02/20/18 Weight 98.1 kg Weight On Admission 98.1 kg Abnormal lab results 02/20/18 02/20/18 02/20/18 Range/Units 12:38 12:38 12:38 WBC 17.8 H (4.0-11.0) th/mm3 Neut % (Auto) 86.2 H (16.0-70.0) % Lymph % (Auto) 3.8 L (9.0-44.0) % [place] % (Auto) 9.8 H (0.0-8.0) % Neut # (Auto) 15.3 H (1.8-7.7) th/mm3 Lymph # (Auto) 0.7 L (1.0-4.8) th/mm3 [place] # (Auto) 1.7 H (0.0-0.9) th/mm3 Seg Neuts % (Manual) 71 H (16-70) % Band Neuts % (Manual) 13 H (0-6) % Lymphocytes % (Manual) 6 L (9-44) % Monocytes % (Manual) 10 H (0-8) % Myelocytes % (Man) (0-0) % Plasma Cell % (Manual) (0-0) % Abs Neuts (Manual) 15.0 H (1.8-7.7) th/mm3 PT 11.7 H (9.8-11.6) sec Sodium 133 L (136-145) meq/L Potassium (3.5-5.1) meq/L Chloride 96 L (98-107) meq/L Creatinine 1.10 H (0.50-1.00) mg/dL Estimated GFR 49 L (>89) mL/min POC Glucose (68-110) mg/dl Random Glucose 145 H (74-106) mg/dL Total Bilirubin 1.1 H (0.2-1.0) mg/dL AST (15-37) U/L Troponin I Less than 0.02 L (0.02-0.05) ng/mL Albumin 2.6 L (3.4-5.0) g/dL TSH 0.172 L (0.358-3.740) uIU/mL Urine Clarity (Clear) Urine Protein (Neg-Trace) mg/dL Urine Occult Blood (Negative) Urine Nitrate (Negative) Ur Leukocyte Esterase (Negative) Urine WBC (0-5) /hpf Urine WBC Clumps (None) Urine Bacteria (None) /hpf 02/20/18 02/20/18 02/21/18 Range/Units 13:53 19:44 05:39 WBC 15.7 H (4.0-11.0) th/mm3 Neut % (Auto) (16.0-70.0) % Lymph % (Auto) (9.0-44.0) % [place] % (Auto) (0.0-8.0) % Neut # (Auto) (1.8-7.7) th/mm3 Lymph # (Auto) (1.0-4.8) th/mm3 [place] # (Auto) (0.0-0.9) th/mm3 Seg Neuts % (Manual) (16-70) % Band Neuts % (Manual) 22 H (0-6) % Lymphocytes % (Manual) 4 L (9-44) % Monocytes % (Manual) (0-8) % Myelocytes % (Man) 1 H (0-0) % Plasma Cell % (Manual) 2 H (0-0) % Abs Neuts (Manual) 13.8 H (1.8-7.7) th/mm3 PT (9.8-11.6) sec Sodium (136-145) meq/L Potassium (3.5-5.1) meq/L Chloride (98-107) meq/L Creatinine (0.50-1.00) mg/dL Estimated GFR (>89) mL/min POC Glucose 138 H (68-110) mg/dl Random Glucose (74-106) mg/dL Total Bilirubin (0.2-1.0) mg/dL AST (15-37) U/L Troponin I (0.02-0.05) ng/mL Albumin (3.4-5.0) g/dL TSH (0.358-3.740) uIU/mL Urine Clarity Cloudy H (Clear) Urine Protein 30 H (Neg-Trace) mg/dL Urine Occult Blood Moderate H (Negative) Urine Nitrate Positive H (Negative) Ur Leukocyte Esterase Large H (Negative) Urine WBC 73 H (0-5) /hpf Urine WBC Clumps Many H (None) Urine Bacteria Many H (None) /hpf 02/21/18 02/21/18 Range/Units 05:39 12:26 WBC (4.0-11.0) th/mm3 Neut % (Auto) (16.0-70.0) % Lymph % (Auto) (9.0-44.0) % [place] % (Auto) (0.0-8.0) % Neut # (Auto) (1.8-7.7) th/mm3 Lymph # (Auto) (1.0-4.8) th/mm3 [place] # (Auto) (0.0-0.9) th/mm3 Seg Neuts % (Manual) (16-70) % Band Neuts % (Manual) (0-6) % Lymphocytes % (Manual) (9-44) % Monocytes % (Manual) (0-8) % Myelocytes % (Man) (0-0) % Plasma Cell % (Manual) (0-0) % Abs Neuts (Manual) (1.8-7.7) th/mm3 PT (9.8-11.6) sec Sodium 135 L (136-145) meq/L Potassium 3.0 L (3.5-5.1) meq/L Chloride (98-107) meq/L Creatinine (0.50-1.00) mg/dL Estimated GFR 55 L (>89) mL/min POC Glucose 115 H (68-110) mg/dl Random Glucose 128 H (74-106) mg/dL Total Bilirubin (0.2-1.0) mg/dL AST 13 L (15-37) U/L Troponin I (0.02-0.05) ng/mL Albumin 2.3 L (3.4-5.0) g/dL TSH (0.358-3.740) uIU/mL Urine Clarity (Clear) Urine Protein (Neg-Trace) mg/dL Urine Occult Blood (Negative) Urine Nitrate (Negative) Ur Leukocyte Esterase (Negative) Urine WBC (0-5) /hpf Urine WBC Clumps (None) Urine Bacteria (None) /hpf AP 1. UTI with SIRS criteria -- patient was on bactrim a few weeks back which makes this a more complicated UTI. The resident team stopped her abx that were started in the ED and placed the patient on meropenum for this. ID has seen the patient and changed her to zosyn. At this time CT abd/pelv pending. Cultures pending. 2. TANIYA -- likely secondary to dehydration and her UTI. Her Cr has normalized today. Continue IVF throughout today especially since the patient is going to receive contrast. Her other medical issues appear to be stable. Continue her home medications and treatments. Patient was seen and dw the resident team -- Dr. Hernandez, Dr. Lockhart and Dr. Taylor
--- NOTE | 2018-02-21 11:23 | P.CONID ---
History of Present Illness Service: Infectious disease Consult date: 02/21/18 Requesting Physician: Jael Medrano Reason for Consult: Evaluate patient with UTI Primary Care Provider: Levy Bunch Chief Complaint: not feeling well, chills History of Present Illness: Patient seen and examined. Records reviewed. Patient is a 73-year-old female, brought into the hospital complaining of 4-day history of just not feeling well. She has been having some chills, decreased appetite, nausea but no vomiting. She has not had any abdominal pain. Denies any respiratory symptoms. She denies any urinary complaints. No back pain. She had noted that her urine looks tea colored, but denies having any keila hematuria or passing any gravel or sand-like material. Patient apparently has had about 3 episodes of urinary tract infection in the past. She has not had any urological evaluation. She has had some problem with some incontinence especially at night, usually when she could not get in time to the bathroom. However normally during the daytime and wake time she has not had any problem with incontinence. The last episode of UTI she remembered was back in September when she was admitted for right lower extremity DVT. There was a urinalysis done at that time, but no urine culture done. She was discharged and her primary care physician gave her a course of Bactrim. On this admission she denied any urinary complaints. Her temperature was up to 102. Her WBC is elevated. Her urinalysis did show pyuria. Blood culture and urine culture are still pending. Patient so far this morning feels a little bit better. Infectious disease consultation has been requested to evaluate the patient. Review of Systems Constitutional: Reports anorexia, Reports chills, Reports fatigue, Reports fever (s), Reports weakness Eyes: Denies discharge, Denies dry eyes Ears, Nose, Mouth, and Throat: Reports dizziness, Denies difficulty swallowing, Denies facial pain, Denies nasal congestion, Denies nasal discharge, Denies neck pain, Denies sore throat Cardiovascular: Denies chest pain, Denies shortness of breath Respiratory: Denies chest congestion, Denies cough, Denies shortness of breath Gastrointestinal: Reports loose stools, Reports nausea, Denies abdominal pain, Denies pain with swallowing, Denies vomiting Genitourinary: Reports urinary incontinence, Denies difficulty urinating, Denies painful urination Musculoskeletal: Reports muscle weakness, Denies back pain, Denies joint pain, Denies joint swelling Skin/Breast: Denies rash, Denies sores Neurologic: Reports dizziness PMFSH - History History Provided By: Patient, Family Member - Medical History Medical History: Medical History (Last Reviewed 02/20/18 @ 12:36 by DAVID Francis) Fibromyalgia Hypothyroid Sleep apnea DVT (deep venous thrombosis) Diabetes High cholesterol - Tobacco History Second Hand Smoke Exposure: Yes Tobacco Use In Past 30 Days: Yes Smoking Status: Never smoker Tobacco Type: Cigarettes - Alcohol History How Often Do You Have a Drink Containing Alcohol: 2 to 3 times a week - Substance Use History Substance History: No History of Abuse - Travel History Recent Travel in the [place] Within the Last 8 Weeks: No Recent Travel Out of the Country Within the Last 8 Weeks: No - Immunization History Tetanus Immunization: <5 Years Hx Influenza Vaccine This Season: Yes Medications and Allergies Active Medications: Active Medications Acetaminophen (Tylenol) 650 mg PO Q4H PRN PRN Reason: Temp > 100.4 Last Admin: 02/21/18 03:53 Dose: 650 mg Duloxetine HCl (Cymbalta) 60 mg PO DAILY [facility] Last Admin: 02/21/18 08:09 Dose: 60 mg Heparin Sodium (Porcine) (Heparin Inj) 5,000 units SQ Q8H [facility] Last Admin: 02/21/18 09:12 Dose: 5,000 units Sodium Chloride (Ns Inj) 1,000 mls @ 140 mls/hr IV.CONT .Q7H9M [facility] Last Admin: 02/21/18 10:17 Dose: 140 mls/hr Meropenem 1,000 mg/ Sodium (Chloride) 100 mls @ 200 mls/hr IV.SIG Q12H [facility] Last Infusion: 02/21/18 08:43 Dose: Infused Insulin Aspart (Novolog Insulin Correctional Sugar Inj) 0 unit SQ 08,12,17,21 [facility]; Protocol Last Admin: 02/21/18 08:09 Dose: Not Given Levothyroxine Sodium (Synthroid) 150 mcg PO DAILY@0600 [facility] Last Admin: 02/21/18 06:15 Dose: 150 mcg Ondansetron HCl (Zofran Inj) 4 mg IV.PUSH Q6H PRN PRN Reason: NAUSEA OR VOMITING Pantoprazole Sodium (Protonix) 20 mg PO DAILY [facility] Last Admin: 02/21/18 08:09 Dose: 20 mg Pravastatin Sodium (Pravachol) 20 mg PO DAILY [facility] Last Admin: 02/21/18 08:09 Dose: 20 mg Sodium Chloride (Ns Flush) 2 ml IV.FLUSH PRN PRN PRN Reason: FLUSH AFTER USING IV ACCESS Allergies Allergy/AdvReac Type Severity Reaction Status Date / Time adhesive Allergy Severe Rash Verified 01/28/18 22:42 mercury salts Allergy Severe RASH,EDEMA, Verified 01/28/18 22:42 PUSTULES neomycin Allergy Severe VAGINITIS Verified 01/28/18 22:42 povidone-iodine Allergy Severe Rash,EDEMA, Verified 01/28/18 22:42 PUSTULES Home Medications Medication Instructions Recorded Confirmed Type levothyroxine 150 mcg PO DAILY 01/28/18 02/20/18 History omeprazole magnesium [Prilosec OTC] 20 mg PO DAILY 01/28/18 02/20/18 History duloxetine [Cymbalta] 60 mg PO DAILY 02/20/18 02/20/18 History lovastatin 20 mg PO DAILY 02/20/18 02/20/18 History Exam Vital signs: Vital Signs 02/20/18 11:33 02/20/18 11:40 02/20/18 13:00 Temperature 98.5 F 99.5 F Pulse Rate 87 87 Respiratory Rate 20 Blood Pressure 114/55 L 114/55 L Pulse Oximetry 95 95 95 02/20/18 15:28 02/20/18 18:52 02/20/18 20:00 Temperature 102.9 F H 98.9 F Pulse Rate 84 82 Respiratory Rate 20 18 Blood Pressure 156/70 H 104/59 L Pulse Oximetry 95 93 L 92 L 02/21/18 00:00 02/21/18 04:00 02/21/18 06:30 Temperature 98.1 F 102.3 F H 98.2 F Pulse Rate 72 98 H 80 Respiratory Rate 18 20 18 Blood Pressure 138/63 174/77 H 121/58 L Pulse Oximetry 98 100 93 L 02/21/18 08:00 02/21/18 09:00 Temperature 97.5 F L Pulse Rate 75 76 Respiratory Rate 20 Blood Pressure 108/67 Pulse Oximetry 94 L Intake & Output 02/20/18 02/21/18 02/21/18 18:59 06:59 18:59 Intake Total 350 / 350 1730 / 1730 1100 / 1100 Output Total 1000 / 1000 Balance 350 / 350 730 / 730 1100 / 1100 Weight 98.1 kg Intake: IV 350 / 350 1100 / 1100 1100 / 1100 NS Inj 1,000 ML @ 140 mls/hr IV 1000 / 1000 1000 / 1000 .CONT .Q7H9M JENNIE Rx#:[id number] Merrem Inj 1,000 MG In NS Inj 100 / 100 100 / 100 100 ML @ 200 mls/hr IV.SIG Q12H JENNIE Rx#:[id number] Zosyn 4.5 GM Premix 4.5 gm In 100 / 100 100 ml @ 200 mls/hr IV.SIG STAT STA Rx#:[id number] Vancomycin Inj 1,000 MG In NS 250 / 250 Inj 250 ML @ 250 mls/hr IV.SIG STAT STA Rx#:[id number] Oral 630 / 630 Output: Urine 1000 / 1000 Other: # Voids 3 Date of Last Bowel Movement 02/20/18 02/20/18 Weight On Admission 98.1 kg Narrative: Physical Examination GENERAL: Patient is a well-nourished, well-developed female, awake and alert , not in respiratory distress. SKIN: Warm and dry. No generalized rash, no ecchymoses and no evidence of embolic lesions. HEAD: Atraumatic. Normocephalic. No temporal wasting, or tenderness. EYES: [place] conjunctiva. No petechia or hemorrhage. Pupils equal, round and reactive to light. Extraocular movements full and intact. No scleral icterus. No injection or drainage. EARS, NOSE AND THROAT: Nose without bleeding or purulent nasal discharge. No sinus tenderness. Mucous membranes pink and moist. No oral lesions noted. No exudate. No oral thrush. NECK: Trachea midline. Supple and not tender, no meningeal signs CARDIOVASCULAR: Regular rate and rhythm. No murmurs, rubs or gallops heard RESPIRATORY: Clear to auscultation. Breath sounds equal bilaterally. No rales , wheezing or rhonchi ABDOMEN: Soft, slightly globular, non-tender, nondistended. Bowel sounds present and normoactive. No guarding. No rebound. No organomegaly. She has ventral hernia EXTREMITIES: No clubbing, cyanosis, or edema. No joint effusion, has good ROM. No calf tenderness. Well perfused and warm. NEUROLOGICAL: Awake and alert. Cranial nerves grossly intact. Motor grossly within normal limits. PSYCHIATRIC: Normal affect, calm and cooperative. LINE: No evidence of infection Results - Labs CBC & Chem 7: 02/21/18 05:39 02/21/18 05:39 Labs: Laboratory Results - last 24 hr 02/20/18 02/20/18 02/20/18 12:38 12:38 12:38 WBC 17.8 H RBC 4.40 Hgb 13.3 Hct 40.9 MCV 93.0 MCH 30.2 MCHC 32.5 RDW 13.5 Plt Count 221 MPV 7.4 Prelim Diff (Auto) Slide review pending Neut % (Auto) 86.2 H Lymph % (Auto) 3.8 L [place] % (Auto) 9.8 H Eos % (Auto) 0.0 Baso % (Auto) 0.2 Neut # (Auto) 15.3 H Lymph # (Auto) 0.7 L [place] # (Auto) 1.7 H Eos # (Auto) 0.0 Baso # (Auto) 0.0 WBC Differential Manual diff final Seg Neuts % (Manual) 71 H Band Neuts % (Manual) 13 H Lymphocytes % (Manual) 6 L Monocytes % (Manual) 10 H Myelocytes % (Man) Plasma Cell % (Manual) Abs Neuts (Manual) 15.0 H Differential Comment . Platelet Estimate Normal Platelet Morphology Normal RBC Morphology Normal PT 11.7 H INR 1.2 APTT 25.9 Sodium 133 L Potassium 3.7 Chloride 96 L Carbon Dioxide 27.2 Anion Gap 10 BUN 15 Creatinine 1.10 H Estimated GFR 49 L POC Glucose Random Glucose 145 H Lactic Acid Calcium 8.9 Total Bilirubin 1.1 H AST 20 ALT 18 Alkaline Phosphatase 82 Total Creatine Kinase 98 Troponin I Less than 0.02 L Total Protein 7.2 Albumin 2.6 L TSH 0.172 L Urine Color Urine Clarity Urine pH Ur Specific [place] Urine Protein Urine Glucose (UA) Urine Ketones Urine Occult Blood Urine Nitrate Urine Bilirubin Urine Urobilinogen Ur Leukocyte Esterase Urine RBC Urine WBC Urine WBC Clumps Ur Squamous Epith Cells Urine Bacteria Micro UA Comment Ur Microscopic Review Urine Culture Comments Stl C.difficile Tox PCR St C. diff Tox Epid 027 Urine Opiates Screen Ur Barbiturates Screen Ur Amphetamines Screen U Benzodiazepines Scrn Urine Cocaine Screen U Cannabinoids Screen 02/20/18 02/20/18 02/20/18 13:53 13:53 14:17 WBC RBC Hgb Hct MCV MCH MCHC RDW Plt Count MPV Prelim Diff (Auto) Neut % (Auto) Lymph % (Auto) [place] % (Auto) Eos % (Auto) Baso % (Auto) Neut # (Auto) Lymph # (Auto) [place] # (Auto) Eos # (Auto) Baso # (Auto) WBC Differential Seg Neuts % (Manual) Band Neuts % (Manual) Lymphocytes % (Manual) Monocytes % (Manual) Myelocytes % (Man) Plasma Cell % (Manual) Abs Neuts (Manual) Differential Comment Platelet Estimate Platelet Morphology RBC Morphology PT INR APTT Sodium Potassium Chloride Carbon Dioxide Anion Gap BUN Creatinine Estimated GFR POC Glucose Random Glucose Lactic Acid 0.9 Calcium Total Bilirubin AST ALT Alkaline Phosphatase Total Creatine Kinase Troponin I Total Protein Albumin TSH Urine Color Yellow Urine Clarity Cloudy H Urine pH 6.0 Ur Specific [place] 1.005 Urine Protein 30 H Urine Glucose (UA) Negative Urine Ketones Negative Urine Occult Blood Moderate H Urine Nitrate Positive H Urine Bilirubin Negative Urine Urobilinogen Less than 2 Ur Leukocyte Esterase Large H Urine RBC 3 Urine WBC 73 H Urine WBC Clumps Many H Ur Squamous Epith Cells 1 Urine Bacteria Many H Micro UA Comment Cath-culture ind Ur Microscopic Review Not Reportable Urine Culture Comments Cath-cult indicated Stl C.difficile Tox PCR St C. diff Tox Epid 027 Urine Opiates Screen Neg Ur Barbiturates Screen Neg Ur Amphetamines Screen Neg U Benzodiazepines Scrn Neg Urine Cocaine Screen Neg U Cannabinoids Screen Neg 02/20/18 02/20/18 02/21/18 19:44 20:44 05:39 WBC 15.7 H RBC 4.17 Hgb 13.0 Hct 37.9 MCV 91.0 MCH 31.2 MCHC 34.3 RDW 13.3 Plt Count 244 MPV 7.3 Prelim Diff (Auto) Manual diff required Neut % (Auto) Lymph % (Auto) [place] % (Auto) Eos % (Auto) Baso % (Auto) Neut # (Auto) Lymph # (Auto) [place] # (Auto) Eos # (Auto) Baso # (Auto) WBC Differential Manual diff final Seg Neuts % (Manual) 65 Band Neuts % (Manual) 22 H Lymphocytes % (Manual) 4 L Monocytes % (Manual) 6 Myelocytes % (Man) 1 H Plasma Cell % (Manual) 2 H Abs Neuts (Manual) 13.8 H Differential Comment . Platelet Estimate Normal Platelet Morphology Normal RBC Morphology PT INR APTT Sodium Potassium Chloride Carbon Dioxide Anion Gap BUN Creatinine Estimated GFR POC Glucose 138 H Random Glucose Lactic Acid Calcium Total Bilirubin AST ALT Alkaline Phosphatase Total Creatine Kinase Troponin I Total Protein Albumin TSH Urine Color Urine Clarity Urine pH Ur Specific [place] Urine Protein Urine Glucose (UA) Urine Ketones Urine Occult Blood Urine Nitrate Urine Bilirubin Urine Urobilinogen Ur Leukocyte Esterase Urine RBC Urine WBC Urine WBC Clumps Ur Squamous Epith Cells Urine Bacteria Micro UA Comment Ur Microscopic Review Urine Culture Comments Stl C.difficile Tox PCR Negative St C. diff Tox Epid 027 Negative Urine Opiates Screen Ur Barbiturates Screen Ur Amphetamines Screen U Benzodiazepines Scrn Urine Cocaine Screen U Cannabinoids Screen 02/21/18 05:39 WBC RBC Hgb Hct MCV MCH MCHC RDW Plt Count MPV Prelim Diff (Auto) Neut % (Auto) Lymph % (Auto) [place] % (Auto) Eos % (Auto) Baso % (Auto) Neut # (Auto) Lymph # (Auto) [place] # (Auto) Eos # (Auto) Baso # (Auto) WBC Differential Seg Neuts % (Manual) Band Neuts % (Manual) Lymphocytes % (Manual) Monocytes % (Manual) Myelocytes % (Man) Plasma Cell % (Manual) Abs Neuts (Manual) Differential Comment Platelet Estimate Platelet Morphology RBC Morphology PT INR APTT Sodium 135 L Potassium 3.0 L Chloride 100 Carbon Dioxide 22.3 Anion Gap 13 BUN 16 Creatinine 0.99 Estimated GFR 55 L POC Glucose Random Glucose 128 H Lactic Acid Calcium 8.7 Total Bilirubin 0.7 AST 13 L ALT 18 Alkaline Phosphatase 78 Total Creatine Kinase Troponin I Total Protein 6.8 Albumin 2.3 L TSH Urine Color Urine Clarity Urine pH Ur Specific [place] Urine Protein Urine Glucose (UA) Urine Ketones Urine Occult Blood Urine Nitrate Urine Bilirubin Urine Urobilinogen Ur Leukocyte Esterase Urine RBC Urine WBC Urine WBC Clumps Ur Squamous Epith Cells Urine Bacteria Micro UA Comment Ur Microscopic Review Urine Culture Comments Stl C.difficile Tox PCR St C. diff Tox Epid 027 Urine Opiates Screen Ur Barbiturates Screen Ur Amphetamines Screen U Benzodiazepines Scrn Urine Cocaine Screen U Cannabinoids Screen - Imaging Impressions Chest X-Ray 02/20/18 11:54 CONCLUSION: Chronic appearing interstitial changes. No acute abnormality. Head CT 02/20/18 11:54 CONCLUSION: 1. Negative CT Head non contrast. . Assessment and Plan - Plan Impression Sepsis due to UTI UTI Leukocytosis due to UTI Recommendation IV Zosyn CT A/P to complete UTi work-up - she has not had any work-up Follow C/S Stop meropenem Monitor progress I will determine course of Abx once workup is completed I will follow along with you Thank you for this consultation
[2018-02-21] MEDS ORDERED: Diatrizoate Meglum/Diatrizoate Sod Liq 9 ML UDC PO SCH (11:42)
[2018-02-21] MEDS: Piperacil/Tazo 4.5 GM Premix 4.5 GM/100 ML BAG IV.SIG SCH ×3 (12:25→23:26)
--- NOTE | 2018-02-21 16:35 | ECG ---
Date Performed: 02/20/2018 Time Performed: 12:47:10 PTAGE: 73 years EKG: Sinus rhythm WITH SINUS ARRHYTHMIA NORMAL ECG PREVIOUS TRACING :08/14/2008 @07.58 Since the previous tracing, no significant change noted DOCTOR: Shiv English Interpretating Date/Time 02/21/2018 16:34:30
[2018-02-21] MEDS ORDERED: Vancomycin Consult Pharmacy OTHER PRN (17:02)
[2018-02-21] MEDS ORDERED: Vancomycin Inj 1,500 MG in Sodium Chlor 0.9% Inj 500 ML IV.SIG SCH (18:00)
[2018-02-21] MEDS ORDERED: Morphine Inj 4 MG/ML Vial IV.PUSH PRN (19:00)
--- NOTE | 2018-02-21 19:33 | CT ---
EXAM DATE: 02/21/2018 6:16 PM EDT AGE/SEX: 73 years / Female INDICATIONS: Abdominal pain, abscess. CLINICAL DATA: This is the patient's initial encounter. Patient reports that signs and symptoms have been present for 1 day and indicates a pain score of 5/10. MEDICAL/SURGICAL HISTORY: Diabetes. Deep venous thrombosis. Fibromyalgia. . Right hip replac ement. ORAL CONTRAST: Prescribed oral contrast ingested. RADIATION DOSE: 16.49 CTDI (mGy) COMPARISON: No prior exams available for comparison. TECHNIQUE: Multiple contiguous axial images were obtained through the abdomen and pelvis following b olus infusion of 90 ml Omnipaque 350 (iohexol) nonionic water-soluble contrast as a single exam dos e. Prescribed oral contrast ingested. Using automated exposure control and adjustment of the mA and/ or kV according to patient size, radiation dose was kept as low as reasonably achievable to obtain op timal diagnostic quality images. DICOM format image data is available electronically for review and comparison. FINDINGS: The liver is mild fatty infiltrated. Previous cholecystectomy. Spleen, pancreas and adrenal glands ar e within normal limits. There is a 13 x 27 x 19 mm stone in the left renal pelvis. Minimal hydronephrosis but there is some e alicja around the pelvis. No acute abnormality seen of the right kidney. No obstruction or acute inflammatory changes are seen of the gastrointestinal tract. No free fluid or free air. No lymphadenopathy. No loculated fluid collections are demonstrated. There is tortuosity and atherosclerosis of the abdominal aorta. No aneurysm. Trace dependent atelectasis of both bases. No acute bony abnormalities are demonstrated. Small umbilical hernia containing fat only. CONCLUSION: 1. Large but minimally obstructing stone of the left renal pelvis. There is probable irritation of t he urothelium. 2. No other acute abnormalities are demonstrated. No abscess. Electronically signed by: Jose Angeles MD 02/21/2018 7:32 PM EDT
[2018-02-21] MEDS: Ibuprofen 600 MG Tablet PO PRN (20:31)
[2018-02-22] MEDS: Heparin - SQ 10,000 UNITS/ML Vial SQ SCH ×3 (02:28→17:30)
[2018-02-22] MEDS: Sod Chloride 0.9% Inj 1,000 ML IV.CONT SCH ×4 (04:21→23:04)
[2018-02-22] MEDS: Piperacil/Tazo 4.5 GM Premix 4.5 GM/100 ML BAG IV.SIG SCH ×4 (06:29→23:34)
[2018-02-22] MEDS: Levothyroxine 150 MCG Tablet PO SCH (06:29)
[2018-02-22 07:22] LABS: Baso # (Auto) 0.1 th/mm3 (0.0-0.2); Baso % (Auto) 0.5 % (0.0-2.0); Eos # (Auto) 0.2 th/mm3 (0.0-0.4); Eos % (Auto) 1.8 % (0.0-4.0); Hematocrit 38.7 % (35.0-46.0); Hemoglobin 13.2 gm/dL (11.6-15.3); Lymph # (Auto) 1.5 th/mm3 (1.0-4.8); Lymph % (Auto) 11.9 % (9.0-44.0); Mean Corpuscular HGB Conc 34.3 % (32.0-36.0); Mean Corpuscular Hemoglobin 31.4 pg (27.0-34.0); Mean Corpuscular Volume 91.6 fL (80.0-100.0); Mean Platelet Volume 7.1 fL (7.0-11.0); Mono # (Auto) 1.2 th/mm3 (0.0-0.9); Mono % (Auto) 9.3 % (0.0-8.0); Neut # (Auto) 9.8 th/mm3 (1.8-7.7); Neut % (Auto) 76.5 % (16.0-70.0); Platelet Count 254 th/mm3 (150-450); Red Blood Count 4.22 mil/mm3 (4.00-5.30); Red Cell Distribution Width 13.9 % (11.6-17.2); White Blood Count 12.9 th/mm3 (4.0-11.0)
[2018-02-22 07:49] LABS: Calcium 8.7 mg/dL (8.5-10.1); Carbon Dioxide 24.9 meq/L (21.0-32.0); Potassium 3.3 meq/L (3.5-5.1)
[2018-02-22] MEDS: Pantoprazole Sodium 20 MG DR Tablet PO SCH (08:34)
[2018-02-22] MEDS: Duloxetine 60 MG DR Capsule PO SCH (08:34)
[2018-02-22] MEDS: Insulin NovoLOG Aspart Correctional Sugar Inj SQ SCH ×4 (08:37→23:05)
--- NOTE | 2018-02-22 10:11 | P.PNFP ---
Subjective Interval history: Pt seen and examined this morning. She has no complains and feels better overall. She states her kidney stone discovered yesterday in CT scan has been there for years and usually doesn't cause any problems or symptoms. She also states she has been having diarrhea for years, not related to this UTI. Discussed with patient results of CT scan, blood and urine cultures, and updates on plan. Pt denies fevers, chills, shortness of breath, chest pain, N/ V. Still endorses decreased appetite but tolerating PO. <Allie Huerta V - 02/22/18 10:45> Results - Labs Result diagrams: 02/22/18 06:22 02/22/18 14:29 <Jael Medrano R - 02/22/18 16:37> Abnormal lab results 02/21/18 02/21/18 02/22/18 Range/Units 17:37 20:11 06:22 WBC 12.9 H (4.0-11.0) th/mm3 Neut % (Auto) 76.5 H (16.0-70.0) % [place] % (Auto) 9.3 H (0.0-8.0) % Neut # (Auto) 9.8 H (1.8-7.7) th/mm3 [place] # (Auto) 1.2 H (0.0-0.9) th/mm3 Potassium (3.5-5.1) meq/L Chloride (98-107) meq/L Estimated GFR (>89) mL/min POC Glucose 138 H 123 H (68-110) mg/dl Random Glucose (74-106) mg/dL 02/22/18 02/22/18 02/22/18 Range/Units 06:22 08:37 12:41 WBC (4.0-11.0) th/mm3 Neut % (Auto) (16.0-70.0) % [place] % (Auto) (0.0-8.0) % Neut # (Auto) (1.8-7.7) th/mm3 [place] # (Auto) (0.0-0.9) th/mm3 Potassium 3.3 L (3.5-5.1) meq/L Chloride 109 H D (98-107) meq/L Estimated GFR 65 L (>89) mL/min POC Glucose 117 H 148 H (68-110) mg/dl Random Glucose 112 H (74-106) mg/dL Short CBC 02/22/18 Range/Units 06:22 WBC 12.9 H (4.0-11.0) th/mm3 Hgb 13.2 (11.6-15.3) gm/dL Hct 38.7 (35.0-46.0) % Plt Count 254 (150-450) th/mm3 BMP 02/21/18 02/22/18 02/22/18 17:38 06:22 14:29 Sodium 145 D Potassium 3.7 3.3 L 3.6 Chloride 109 H D Carbon Dioxide 24.9 BUN 12 Creatinine 0.86 Calcium 8.7 <Jael Medrano - 02/22/18 16:37> Abnormal lab results 02/20/18 02/21/18 02/21/18 Range/Units 13:53 12:26 17:37 WBC (4.0-11.0) th/mm3 Neut % (Auto) (16.0-70.0) % [place] % (Auto) (0.0-8.0) % Neut # (Auto) (1.8-7.7) th/mm3 [place] # (Auto) (0.0-0.9) th/mm3 Potassium (3.5-5.1) meq/L Chloride (98-107) meq/L Estimated GFR (>89) mL/min POC Glucose 115 H 138 H (68-110) mg/dl Random Glucose (74-106) mg/dL Urine Clarity Cloudy H (Clear) Urine Protein 30 H (Neg-Trace) mg/dL Urine Occult Blood Moderate H (Negative) Urine Nitrate Positive H (Negative) Ur Leukocyte Esterase Large H (Negative) Urine WBC 73 H (0-5) /hpf Urine WBC Clumps Many H (None) Urine Bacteria Many H (None) /hpf 02/21/18 02/22/18 02/22/18 Range/Units 20:11 06:22 06:22 WBC 12.9 H (4.0-11.0) th/mm3 Neut % (Auto) 76.5 H (16.0-70.0) % [place] % (Auto) 9.3 H (0.0-8.0) % Neut # (Auto) 9.8 H (1.8-7.7) th/mm3 [place] # (Auto) 1.2 H (0.0-0.9) th/mm3 Potassium 3.3 L (3.5-5.1) meq/L Chloride 109 H D (98-107) meq/L Estimated GFR 65 L (>89) mL/min POC Glucose 123 H (68-110) mg/dl Random Glucose 112 H (74-106) mg/dL Urine Clarity (Clear) Urine Protein (Neg-Trace) mg/dL Urine Occult Blood (Negative) Urine Nitrate (Negative) Ur Leukocyte Esterase (Negative) Urine WBC (0-5) /hpf Urine WBC Clumps (None) Urine Bacteria (None) /hpf 02/22/18 Range/Units 08:37 WBC (4.0-11.0) th/mm3 Neut % (Auto) (16.0-70.0) % [place] % (Auto) (0.0-8.0) % Neut # (Auto) (1.8-7.7) th/mm3 [place] # (Auto) (0.0-0.9) th/mm3 Potassium (3.5-5.1) meq/L Chloride (98-107) meq/L Estimated GFR (>89) mL/min POC Glucose 117 H (68-110) mg/dl Random Glucose (74-106) mg/dL Urine Clarity (Clear) Urine Protein (Neg-Trace) mg/dL Urine Occult Blood (Negative) Urine Nitrate (Negative) Ur Leukocyte Esterase (Negative) Urine WBC (0-5) /hpf Urine WBC Clumps (None) Urine Bacteria (None) /hpf Short CBC 02/22/18 Range/Units 06:22 WBC 12.9 H (4.0-11.0) th/mm3 Hgb 13.2 (11.6-15.3) gm/dL Hct 38.7 (35.0-46.0) % Plt Count 254 (150-450) th/mm3 BMP 02/21/18 02/22/18 17:38 06:22 Sodium 145 D Potassium 3.7 3.3 L Chloride 109 H D Carbon Dioxide 24.9 BUN 12 Creatinine 0.86 Calcium 8.7 Urine 02/20/18 Range/Units 13:53 Urine Color Yellow (Yellw/Straw) Urine Clarity Cloudy H (Clear) Urine pH 6.0 (5.0-8.5) Ur Specific [place] 1.005 (1.002-1.035) Urine Protein 30 H (Neg-Trace) mg/dL Urine Glucose (UA) Negative (Negative) mg/dL <Allie Huerta V - 02/22/18 10:11> - Imaging Impressions Abdomen/Pelvis CT 02/21/18 00:00 CONCLUSION: 1. Large but minimally obstructing stone of the left renal pelvis. There is probable irritation of the urothelium. 2. No other acute abnormalities are demonstrated. No abscess. <Jael Medrano R - 02/22/18 16:37> Impressions Abdomen/Pelvis CT 02/21/18 00:00 CONCLUSION: 1. Large but minimally obstructing stone of the left renal pelvis. There is probable irritation of the urothelium. 2. No other acute abnormalities are demonstrated. No abscess. <Allie Huerta V - 02/22/18 10:11> Physical Exam Vital signs: Vital Signs 02/21/18 20:00 02/21/18 20:50 02/22/18 00:00 Temperature 98.7 F 98.4 F Pulse Rate 101 H 72 Respiratory Rate 18 18 Blood Pressure 151/74 H 134/69 Pulse Oximetry 95 95 94 L 02/22/18 04:00 02/22/18 07:57 02/22/18 08:00 Temperature 97.5 F L 97.4 F L Pulse Rate 66 69 Respiratory Rate 20 20 Blood Pressure 107/58 L 159/74 H Pulse Oximetry 98 94 L 96 02/22/18 12:00 Temperature 97.2 F L Pulse Rate 69 Respiratory Rate 20 Blood Pressure 144/70 H Pulse Oximetry 95 Intake & Output 02/21/18 02/22/18 02/22/18 18:59 06:59 18:59 Intake Total 2900 / 2900 2615 / 2615 1715 / 1715 Balance 2900 / 2900 2615 / 2615 1715 / 1715 Weight 100.9 kg Intake: IV 2300 / 2300 2615 / 2615 1715 / 1715 NS Inj 1,000 ML @ 140 mls/hr IV 1999 / 1999 2000 / 2000 1000 / 1000 .CONT .Q7H9M [facility] Rx#:[id number] Merrem Inj 1,000 MG In NS Inj 100 / 100 100 ML @ 200 mls/hr IV.SIG Q12H [facility] Rx#:[id number] Zosyn 4.5 GM Premix 4.5 gm In 200 / 200 100 / 100 200 / 200 100 ml @ 200 mls/hr IV.SIG Q6H [facility] Rx#:[id number] Vancomycin Inj 1,500 MG In NS 515 / 515 515 / 515 Inj 500 ML @ 257.5 mls/hr IV. SIG Q18H [facility] Rx#:[id number] Oral 600 / 600 Other: # Voids 2 Date of Last Bowel Movement 02/20/18 02/22/18 # Bowel Movements 3 <Jael Medrano R - 02/22/18 16:37> Vital Signs 02/21/18 12:00 02/21/18 16:00 02/21/18 20:00 Temperature 97.8 F 99.4 F 98.7 F Pulse Rate 85 87 101 H Respiratory Rate 20 20 18 Blood Pressure 144/68 H 147/78 H 151/74 H Pulse Oximetry 96 92 L 95 02/21/18 20:50 02/22/18 00:00 02/22/18 04:00 Temperature 98.4 F 97.5 F L Pulse Rate 72 66 Respiratory Rate 18 20 Blood Pressure 134/69 107/58 L Pulse Oximetry 95 94 L 98 02/22/18 07:57 Temperature Pulse Rate Respiratory Rate Blood Pressure Pulse Oximetry 94 L Intake & Output 02/21/18 02/22/18 02/22/18 18:59 06:59 18:59 Intake Total 2900 / 2900 2615 / 2615 100 / 100 Balance 2900 / 2900 2615 / 2615 100 / 100 Weight 100.9 kg Intake: IV 2300 / 2300 2615 / 2615 100 / 100 NS Inj 1,000 ML @ 140 mls/hr IV 1999 / 1999 1999 / 1999 .CONT .Q7H9M [facility] Rx#:[id number] Merrem Inj 1,000 MG In NS Inj 100 / 100 100 ML @ 200 mls/hr IV.SIG Q12H [facility] Rx#:[id number] Zosyn 4.5 GM Premix 4.5 gm In 200 / 200 100 / 100 100 / 100 100 ml @ 200 mls/hr IV.SIG Q6H [facility] Rx#:[id number] Vancomycin Inj 1,500 MG In NS 515 / 515 Inj 500 ML @ 257.5 mls/hr IV. SIG Q24H [facility] Rx#:[id number] Oral 600 / 600 Other: # Voids 2 Date of Last Bowel Movement 02/20/18 02/22/18 # Bowel Movements 3 <Allie Huerta V 02/22/18 10:11> Narrative: GENERAL: Well-nourished, well-developed patient. SKIN: Warm and dry. HEAD: Normocephalic and atraumatic. EYES: No scleral icterus. No injection or drainage. ENT: No nasal drainage noted. Mucous membranes pink. Airway patent. CARDIOVASCULAR: Regular rate and rhythm without murmurs, gallops, or rubs. RESPIRATORY: Breath sounds equal bilaterally. No accessory muscle use. ABDOMEN/GI: Abdomen soft, non-tender, bowel sounds present, no rebound, no guarding EXTREMITIES: No cyanosis or edema. NEUROLOGICAL: Awake and alert. Motor and sensory grossly within normal limits. Normal speech. <Allie Huerta V 02/22/18 10:45> - Urinary Catheter Management Straight Cath placed during this visit: no <Jael Medrano R - 02/22/18 16:37> yes <Allie Huerta V 02/22/18 10:45> Reason for continuing: Not indwelling catheter <Allie Huerta V 10:11> Insertion date: 02/20/18 <Allie Huerta V 02/22/18 10:11> Insertion time: 16:15 <Allie Huerta V 02/22/18 10:11> Assessment and Plan - Assessment (1) Acute UTI Code(s): N39.0 - Urinary tract infection, site not specified Status: Acute (2) TANIYA (acute kidney injury) Code(s): N17.9 - Acute kidney failure, unspecified Status: Acute (3) Diabetes Code(s): E11.9 - Type 2 diabetes mellitus without complications Status: Chronic (4) Fibromyalgia Code(s): M79.7 - Fibromyalgia Status: Chronic (5) Obstructive sleep apnea Code(s): G47.33 - Obstructive sleep apnea (adult) (pediatric) Status: Chronic (6) Hypothyroidism Code(s): E03.9 - Hypothyroidism, unspecified Status: Chronic (7) Hypercholesteremia Code(s): E78.00 - Pure hypercholesterolemia, unspecified Status: Chronic (8) Hx of deep venous thrombosis Code(s): Z86.718 - Personal history of other venous thrombosis and embolism Status: Chronic (9) Kidney stone on left side Code(s): N20.0 - Calculus of kidney Status: Chronic (10) Nutrition, metabolism, and development symptoms Code(s): R63.8 - Other symptoms and signs concerning food and fluid intake Status: Acute (11) DVT prophylaxis Status: Acute <Jael Medrano R - 02/22/18 16:37> (1) Acute UTI Code(s): N39.0 - Urinary tract infection, site not specified Status: Acute (2) TANIYA (acute kidney injury) Code(s): N17.9 - Acute kidney failure, unspecified Status: Acute (3) Diabetes Code(s): E11.9 - Type 2 diabetes mellitus without complications Status: Chronic (4) Fibromyalgia Code(s): M79.7 - Fibromyalgia Status: Chronic (5) Obstructive sleep apnea Code(s): G47.33 - Obstructive sleep apnea (adult) (pediatric) Status: Chronic (6) Hypothyroidism Code(s): E03.9 - Hypothyroidism, unspecified Status: Chronic (7) Hypercholesteremia Code(s): E78.00 - Pure hypercholesterolemia, unspecified Status: Chronic (8) Hx of deep venous thrombosis Code(s): Z86.718 - Personal history of other venous thrombosis and embolism Status: Chronic (9) Kidney stone on left side Code(s): N20.0 - Calculus of kidney Status: Chronic (10) Nutrition, metabolism, and development symptoms Code(s): R63.8 - Other symptoms and signs concerning food and fluid intake Status: Acute (11) DVT prophylaxis Status: Acute <Allie Huerta V - 02/22/18 10:45> - Assessment and Plan 73 yr old female w/ PMH of diabetes, [place], hypothyroidism, hypercholesteremia, fibromyalgia, osteoarthritis and hx of DVT, admitted to observation for uncomplicated UTI. Pt was seen and evaluated on ED where was found to have an UA positive with many bacteria, large leukocyte esterase, many WBC clumps, large occult blood, and positive nitrates. Labs revealed a creatinine 1.1, and leukocytosis of 17.8. She received Vancomycin and Zosyn in ED. On day two of hospitalization pt developed a fever of 102.3 F. Pt placed on meropenem per Uptodate algorithm due to having received Bactrim within the last month. ID consulted and involved in care. Urine cultures growing Gram Negative rods, and anaerobic blood cultures growing Gram positive cocci. Antibiotics switched to Vancomycin and Zosyn until cultures return. Pt also found to have a L kidney stone, chronic in nature per patient. Urology consulted, since this is the 3rd UTI in one year. Anticipate discharge home tomorrow or pending cultures and sensitivities as well as clinical stability. Plan: s/p Vanc and Zosyn in ED 02/20/18 Urine cultures growing gram negative rods, blood cultures growing gram positive cocci - Continue with Zosyn 4.5mg IV q6h and vancomycin 1,500mg IV q24h. - Follow up C/S - ID consulted, appreciate recommendations - Leukocytosis improving from 17.8 on admission to 12.9 today. Repeat CBC in AM - Urology consulted, appreciate recommendations - Tylenol and ibuprofen for fever and/ or pain PRN - Diabetic diet, and low dose Novolog insulin sliding scale - TANIYA -> resolved. Cr today 0.86 - Continue maintenance fluids at 140ml/hr - Hypokalemia: likely due to diarrhea vs IV hydration. K this AM 3.3. Ordered 40mEq once. Repeat K level this afternoon and repeat BMP in AM - Heparin 5,000 U SQ q8 hr and SDCs for DVT prophylaxis - Continue home medications for chronic medical conditions. Stable at this time. - Advised pt to bring her own CPAP machine from home <Allie Huerta V - 02/22/18 10:45> - Attending Attestation The exam, history, and the medical decision-making described in the above note were completed with the assistance of the resident physician. I reviewed and agree with the findings presented. I attest that I had a [id number] encounter with the patient on the same day, and personally performed and documented my assessment and findings in the medical record. <Jael Medrano R - 02/22/18 16:37> <[facility] Filed: 02/22/18 10:45> (3) Diabetes Qualifiers: Diabetes mellitus complication status: without complication <Jael Medrano [facility] Filed: 02/22/18 16:37> (3) Diabetes Qualifiers: Diabetes mellitus complication status: without complication <Allie Huerta [facility] [place] [facility] Filed: 02/22/18 10:45> (3) Diabetes Qualifiers: Diabetes mellitus complication status: without complication <Jael Medrano [facility] Filed: 02/22/18 16:37> (3) Diabetes Qualifiers: Diabetes mellitus complication status: without complication
--- NOTE | 2018-02-22 10:52 | P.PNID ---
Subjective Remarks: Patient is a 73-year-old female, brought into the hospital complaining of 4-day history of just not feeling well. She has been having some chills, decreased appetite, nausea but no vomiting. She has not had any abdominal pain. Denies any respiratory symptoms. She denies any urinary complaints. No back pain. She had noted that her urine looks tea colored, but denies having any keila hematuria or passing any gravel or sand-like material. Patient apparently has had about 3 episodes of urinary tract infection in the past. She has not had any urological evaluation. She has had some problem with some incontinence especially at night, usually when she could not get in time to the bathroom. However normally during the daytime and wake time she has not had any problem with incontinence. The last episode of UTI she remembered was back in September when she was admitted for right lower extremity DVT. There was a urinalysis done at that time, but no urine culture done. She was discharged and her primary care physician gave her a course of Bactrim. On this admission she denied any urinary complaints. Her temperature was up to 102. Her WBC is elevated. Her urinalysis did show pyuria. Blood culture and urine culture are still pending. Patient so far this morning feels a little bit better. Infectious disease consultation has been requested to evaluate the patient. Notes reviewed Last fever yesterday at 4am BC with [facility]PC UC E coli CT A/P with stone L pevis and mild hydro Feels better repeat BC pending WBC lower Antibiotics: Rocephin Vancomycin Lines: PIV Past Medical History: Fibromyalgia Hypothyroid Sleep apnea DVT (deep venous thrombosis) Diabetes High cholesterol Allergies/Adverse Reactions: Allergies adhesive Allergy (Severe, Verified 01/28/18 22:42) Rash mercury salts Allergy (Severe, Verified 01/28/18 22:42) RASH,EDEMA,PUSTULES neomycin Allergy (Severe, Verified 01/28/18 22:42) VAGINITIS povidone-iodine Allergy (Severe, Verified 01/28/18 22:42) Rash,EDEMA,PUSTULES Objective Vital Signs 02/21/18 12:00 02/21/18 16:00 02/21/18 20:00 Temperature 97.8 F 99.4 F 98.7 F Pulse Rate 85 87 101 H Respiratory Rate 20 20 18 Blood Pressure 144/68 H 147/78 H 151/74 H Pulse Oximetry 96 92 L 95 02/21/18 20:50 02/22/18 00:00 02/22/18 04:00 Temperature 98.4 F 97.5 F L Pulse Rate 72 66 Respiratory Rate 18 20 Blood Pressure 134/69 107/58 L Pulse Oximetry 95 94 L 98 02/22/18 07:57 02/22/18 08:00 Temperature 97.4 F L Pulse Rate 69 Respiratory Rate 20 Blood Pressure 159/74 H Pulse Oximetry 94 L 96 Intake & Output 02/21/18 02/22/18 02/22/18 18:59 06:59 18:59 Intake Total 2900 / 2900 2615 / 2615 100 / 100 Balance 2900 / 2900 2615 / 2615 100 / 100 Weight 100.9 kg Intake: IV 2300 / 2300 2615 / 2615 100 / 100 NS Inj 1,000 ML @ 140 mls/hr IV 1999 .CONT .Q7H9M [facility] Rx#:[id number] Merrem Inj 1,000 MG In NS Inj 100 / 100 100 ML @ 200 mls/hr IV.SIG Q12H [facility] Rx#:[id number] Zosyn 4.5 GM Premix 4.5 gm In 200 / 200 100 / 100 100 / 100 100 ml @ 200 mls/hr IV.SIG Q6H [facility] Rx#:[id number] Vancomycin Inj 1,500 MG In NS 515 / 515 Inj 500 ML @ 257.5 mls/hr IV. SIG Q24H [facility] Rx#:[id number] Oral 600 / 600 Other: # Voids 2 Date of Last Bowel Movement 02/20/18 02/22/18 # Bowel Movements 3 02/20/18 13:53 Catheterized Urine Urine Culture - Final Escherichia coli 02/21/18 17:55 Blood - Peripheral Aerobic Blood Culture - Pending 02/21/18 17:55 Blood - Peripheral Anaerobic Blood Culture - Pending 02/21/18 17:38 Blood - Peripheral Aerobic Blood Culture - Pending 02/21/18 17:38 Blood - Peripheral Anaerobic Blood Culture - Pending 02/20/18 14:07 Blood - Peripheral Aerobic Blood Culture - Preliminary No growth in 1 day 02/20/18 14:07 Blood - Peripheral Anaerobic Blood Culture - Preliminary gram positive cocci 02/20/18 14:17 Blood - Peripheral Aerobic Blood Culture - Preliminary No growth in 1 day 02/20/18 14:17 Blood - Peripheral Anaerobic Blood Culture - Preliminary gram positive cocci Lab - Hematology Results 02/20/18 02/21/18 02/22/18 12:38 05:39 06:22 WBC 17.8 H 15.7 H 12.9 H RBC 4.40 4.17 4.22 Hgb 13.3 13.0 13.2 Hct 40.9 37.9 38.7 MCV 93.0 91.0 91.6 MCH 30.2 31.2 31.4 MCHC 32.5 34.3 34.3 RDW 13.5 13.3 13.9 Plt Count 221 244 254 MPV 7.4 7.3 7.1 Prelim Diff (Auto) Slide review pending Manual diff required Neut % (Auto) 86.2 H 76.5 H Lymph % (Auto) 3.8 L 11.9 [place] % (Auto) 9.8 H 9.3 H Eos % (Auto) 0.0 1.8 Baso % (Auto) 0.2 0.5 Neut # (Auto) 15.3 H 9.8 H Lymph # (Auto) 0.7 L 1.5 [place] # (Auto) 1.7 H 1.2 H Eos # (Auto) 0.0 0.2 Baso # (Auto) 0.0 0.1 WBC Differential Manual diff final Manual diff final . Seg Neuts % (Manual) 71 H 65 Band Neuts % (Manual) 13 H 22 H Lymphocytes % (Manual) 6 L 4 L Monocytes % (Manual) 10 H 6 Myelocytes % (Man) 1 H Plasma Cell % (Manual) 2 H Abs Neuts (Manual) 15.0 H 13.8 H Differential Comment . . Auto diff final Platelet Estimate Normal Normal Platelet Morphology Normal Normal RBC Morphology Normal Lab - Chemistry Results 02/20/18 02/20/18 02/20/18 12:38 14:17 19:44 Sodium 133 L Potassium 3.7 Chloride 96 L Carbon Dioxide 27.2 Anion Gap 10 BUN 15 Creatinine 1.10 H Estimated GFR 49 L POC Glucose 138 H Random Glucose 145 H Lactic Acid 0.9 Calcium 8.9 Total Bilirubin 1.1 H AST 20 ALT 18 Alkaline Phosphatase 82 Total Creatine Kinase 98 Troponin I Less than 0.02 L Total Protein 7.2 Albumin 2.6 L TSH 0.172 L 02/21/18 02/21/18 02/21/18 05:39 12:26 17:37 Sodium 135 L Potassium 3.0 L Chloride 100 Carbon Dioxide 22.3 Anion Gap 13 BUN 16 Creatinine 0.99 Estimated GFR 55 L POC Glucose 115 H 138 H Random Glucose 128 H Lactic Acid Calcium 8.7 Total Bilirubin 0.7 AST 13 L ALT 18 Alkaline Phosphatase 78 Total Creatine Kinase Troponin I Total Protein 6.8 Albumin 2.3 L TSH 02/21/18 02/21/18 02/22/18 17:38 20:11 06:22 Sodium 145 D Potassium 3.7 3.3 L Chloride 109 H D Carbon Dioxide 24.9 Anion Gap 11 BUN 12 Creatinine 0.86 Estimated GFR 65 L POC Glucose 123 H Random Glucose 112 H Lactic Acid Calcium 8.7 Total Bilirubin AST ALT Alkaline Phosphatase Total Creatine Kinase Troponin I Total Protein Albumin TSH 02/22/18 08:37 Sodium Potassium Chloride Carbon Dioxide Anion Gap BUN Creatinine Estimated GFR POC Glucose 117 H Random Glucose Lactic Acid Calcium Total Bilirubin AST ALT Alkaline Phosphatase Total Creatine Kinase Troponin I Total Protein Albumin TSH Imaging: ITS Impressions Chest X-Ray 02/20/18 11:54 CONCLUSION: Chronic appearing interstitial changes. No acute abnormality. Head CT 02/20/18 11:54 CONCLUSION: 1. Negative CT Head non contrast. . Abdomen/Pelvis CT 02/21/18 00:00 CONCLUSION: 1. Large but minimally obstructing stone of the left renal pelvis. There is probable irritation of the urothelium. 2. No other acute abnormalities are demonstrated. No abscess. Physical Exam: GENERAL: awake and alert, not in respiratory distress. SKIN: Warm and dry. No generalized rash, no ecchymoses and no evidence of embolic lesions. HEAD: Atraumatic. Normocephalic. No temporal wasting, or tenderness. EYES: [place] conjunctiva. No petechia or hemorrhage. Pupils equal, round and reactive to light. Extraocular movements full and intact. No scleral icterus. No injection or drainage. EARS, NOSE AND THROAT: Nose without bleeding or purulent nasal discharge. No sinus tenderness. Mucous membranes pink and moist. No oral lesions noted. No exudate. No oral thrush. NECK: Trachea midline. Supple and not tender, no meningeal signs CARDIOVASCULAR: Regular rate and rhythm. No murmurs, rubs or gallops heard RESPIRATORY: Clear to auscultation. Breath sounds equal bilaterally. No rales , wheezing or rhonchi ABDOMEN: Soft, slightly globular, non-tender, nondistended. Bowel sounds present and normoactive. No guarding. No rebound. No organomegaly. She has ventral hernia EXTREMITIES: No clubbing, cyanosis, or edema. No joint effusion, has good ROM. No calf tenderness. Well perfused and warm. NEUROLOGICAL: Awake and alert. Cranial nerves grossly intact. Motor grossly within normal limits. PSYCHIATRIC: Normal affect, calm and cooperative. LINE: No evidence of infection Assessment and Plan - Plan Impression Sepsis due to UTI UTI, has stone in L pelvis and mild hydro (+) BC, ?real Leukocytosis due to UTI Recommendation Continue IV Zosyn Continue IV vanco Agree with urology evaluation Follow C/S I will determine course of Abx once workup is completed Explained plen to the patient
--- NOTE | 2018-02-22 12:21 | P.CONURO ---
History of Present Illness Service: Urology Consult date: 02/22/18 Requesting Physician: Allie De Leon Reason for Consult: Kidney stones Primary Care Provider: Levy Bunch Chief Complaint: not feeling well, chills History of Present Illness: 73 yr old female with hx of hypothyroidism, sleep apnea, diabetes, fibromyalgia , osteoarthritis, hypercholesteremia, and DVT within the last year, presented to the ED yesterday with a 4 day history of not feeling well. She has been having chills, nausea, but no vomiting, decreased appetite, and loose stools when eating, for the past 4 days. She was found to have a UTI in the ED on UA, but has had no symptoms of burning, hesitancy, or foul smelling urine. She has increased frequency and has had incontinence due to not making it to the restroom. Denies blood in the urine or stool. She has also had intermittent headaches. She denies fever, shortness of breath, chest pain, and leg pain. CT scan showed a 13 x 27 x 19 mm stone in the left renal pelvis with mild hydro. Apparently pt knows about this stone for many years already and it was not causing any problems for her. was consulted. She feels better today. no f/c/n/v, no pain. Leukocytosis is improving. Cr is normal. Her BC is growing Staph and UC is growing E coli. ID is involved in treatment Review of Systems All other systems reviewed negative except as stated in HPI PMFSH - History History Provided By: Patient, Family Member - Medical History Medical History: Medical History (Last Reviewed 02/22/18 @ 06:48 by Jonah Engel) Fibromyalgia Hypothyroid Sleep apnea DVT (deep venous thrombosis) Diabetes High cholesterol - Tobacco History Second Hand Smoke Exposure: Yes Tobacco Use In Past 30 Days: Yes Smoking Status: Never smoker Tobacco Type: Cigarettes - Alcohol History How Often Do You Have a Drink Containing Alcohol: 2 to 3 times a week - Substance Use History Substance History: No History of Abuse - Travel History Recent Travel in the [place] Within the Last 8 Weeks: No Recent Travel Out of the Country Within the Last 8 Weeks: No - Immunization History Tetanus Immunization: <5 Years Hx Influenza Vaccine This Season: Yes Medications and Allergies Active Medications: Active Medications Acetaminophen (Tylenol) 650 mg PO Q4H PRN PRN Reason: Temp > 100.4 Last Admin: 02/21/18 03:53 Dose: 650 mg Diatrizoate Meglum/Diatrizoate Sod ( Gastroindigo Liq) 18 ml PO ONCE [facility] Last Admin: 02/21/18 15:51 Dose: 18 ml Duloxetine HCl (Cymbalta) 60 mg PO DAILY [facility] Last Admin: 02/22/18 08:34 Dose: 60 mg Heparin Sodium (Porcine) (Heparin Inj) 5,000 units SQ Q8H [facility] Last Admin: 02/22/18 09:34 Dose: 5,000 units Sodium Chloride (Ns Inj) 1,000 mls @ 140 mls/hr IV.CONT .Q7H9M [facility] Last Admin: 02/22/18 06:29 Dose: 140 mls/hr Piperacillin/Tazobactam/Dextrose (Zosyn 4.5 Gm Premix) 4.5 gm in 100 mls @ 200 mls/hr IV.SIG Q6H [facility] Last Admin: 02/22/18 11:20 Dose: 200 mls/hr Vancomycin HCl 1,500 mg/ (Sodium Chloride) 515 mls @ 257.5 mls/hr IV.SIG Q18H [facility] Ibuprofen (Motrin) 600 mg PO Q8H PRN PRN Reason: PAIN SCALE 1 TO 5 Last Admin: 02/21/18 20:31 Dose: 600 mg Insulin Aspart (Novolog Insulin Correctional Sugar Inj) 0 unit SQ 08,12,17,21 [facility]; Protocol Last Admin: 02/22/18 08:37 Dose: Not Given Levothyroxine Sodium (Synthroid) 150 mcg PO DAILY@0600 [facility] Last Admin: 02/22/18 06:29 Dose: 150 mcg Miscellaneous Information ([facility] [place] [place] [facility] Ordered Lab Info) 0 each OTHER ONCE ONE Stop: 02/23/18 23:46 Morphine Sulfate (Morphine Inj) 2 mg IV.PUSH Q4H PRN PRN Reason: PAIN SCALE 6 TO 10 Ondansetron HCl (Zofran Inj) 4 mg IV.PUSH Q6H PRN PRN Reason: NAUSEA OR VOMITING Pantoprazole Sodium (Protonix) 20 mg PO DAILY [facility] Last Admin: 02/22/18 08:34 Dose: 20 mg Pharmacy Profile Note (Vancomycin Consult Pharmacy) 1 each OTHER UNSCH PRN PRN Reason: Pharmacy to dose Pravastatin Sodium (Pravachol) 20 mg PO DAILY [facility] Last Admin: 02/22/18 08:34 Dose: 20 mg Sodium Chloride (Ns Flush) 2 ml IV.FLUSH PRN PRN PRN Reason: FLUSH AFTER USING IV ACCESS Allergies Allergy/AdvReac Type Severity Reaction Status Date / Time adhesive Allergy Severe Rash Verified 01/28/18 22:42 mercury salts Allergy Severe RASH,EDEMA, Verified 01/28/18 22:42 PUSTULES neomycin Allergy Severe VAGINITIS Verified 01/28/18 22:42 povidone-iodine Allergy Severe Rash,EDEMA, Verified 01/28/18 22:42 PUSTULES Home Medications Medication Instructions Recorded Confirmed Type levothyroxine 150 mcg PO DAILY 01/28/18 02/20/18 History omeprazole magnesium [Prilosec OTC] 20 mg PO DAILY 01/28/18 02/20/18 History duloxetine [Cymbalta] 60 mg PO DAILY 02/20/18 02/20/18 History lovastatin 20 mg PO DAILY 02/20/18 02/20/18 History Physical Exam Vital Signs - 24 hr 02/21/18 16:00 02/21/18 20:00 02/21/18 20:50 Temperature 99.4 F 98.7 F Pulse Rate 87 101 H Respiratory Rate 20 18 Blood Pressure 147/78 H 151/74 H Pulse Oximetry 92 L 95 95 02/22/18 00:00 02/22/18 04:00 02/22/18 07:57 Temperature 98.4 F 97.5 F L Pulse Rate 72 66 Respiratory Rate 18 20 Blood Pressure 134/69 107/58 L Pulse Oximetry 94 L 98 94 L 02/22/18 08:00 Temperature 97.4 F L Pulse Rate 69 Respiratory Rate 20 Blood Pressure 159/74 H Pulse Oximetry 96 Physical Exam: GENERAL: This is a well-nourished, well-developed patient, in no apparent distress. SKIN: No rashes, ecchymoses or lesions. Cool and dry. HEAD: Atraumatic. Normocephalic. .CARDIOVASCULAR: Regular rate and rhythm without murmurs, gallops, or rubs. RESPIRATORY: Clear to auscultation. Breath sounds equal bilaterally. No wheezes , rales, or rhonchi. GASTROINTESTINAL: Abdomen soft, non-tender, nondistended. GENITOURINARY: No CVAT MUSCULOSKELETAL: Extremities without clubbing, cyanosis, or edema. N NEUROLOGICAL: Awake and alert. Laboratory Results - last 24 hr 02/20/18 02/21/18 02/21/18 13:53 12:26 17:37 WBC RBC Hgb Hct MCV MCH MCHC RDW Plt Count MPV Neut % (Auto) Lymph % (Auto) [place] % (Auto) Eos % (Auto) Baso % (Auto) Neut # (Auto) Lymph # (Auto) [place] # (Auto) Eos # (Auto) Baso # (Auto) WBC Differential Differential Comment Sodium Potassium Chloride Carbon Dioxide Anion Gap BUN Creatinine Estimated GFR POC Glucose 115 H 138 H Random Glucose Calcium Urine Color Yellow Urine Clarity Cloudy H Urine pH 6.0 Ur Specific [place] 1.005 Urine Protein 30 H Urine Glucose (UA) Negative Urine Ketones Negative Urine Occult Blood Moderate H Urine Nitrate Positive H Urine Bilirubin Negative Urine Urobilinogen Less than 2 Ur Leukocyte Esterase Large H Urine RBC 3 Urine WBC 73 H Urine WBC Clumps Many H Ur Squamous Epith Cells 1 Urine Bacteria Many H Micro UA Comment Cath-culture ind Urine Culture Comments Cath-cult indicated 02/21/18 02/21/18 02/22/18 17:38 20:11 06:22 WBC 12.9 H RBC 4.22 Hgb 13.2 Hct 38.7 MCV 91.6 MCH 31.4 MCHC 34.3 RDW 13.9 Plt Count 254 MPV 7.1 Neut % (Auto) 76.5 H Lymph % (Auto) 11.9 [place] % (Auto) 9.3 H Eos % (Auto) 1.8 Baso % (Auto) 0.5 Neut # (Auto) 9.8 H Lymph # (Auto) 1.5 [place] # (Auto) 1.2 H Eos # (Auto) 0.2 Baso # (Auto) 0.1 WBC Differential . Differential Comment Auto diff final Sodium Potassium 3.7 Chloride Carbon Dioxide Anion Gap BUN Creatinine Estimated GFR POC Glucose 123 H Random Glucose Calcium Urine Color Urine Clarity Urine pH Ur Specific [place] Urine Protein Urine Glucose (UA) Urine Ketones Urine Occult Blood Urine Nitrate Urine Bilirubin Urine Urobilinogen Ur Leukocyte Esterase Urine RBC Urine WBC Urine WBC Clumps Ur Squamous Epith Cells Urine Bacteria Micro UA Comment Urine Culture Comments 02/22/18 02/22/18 06:22 08:37 WBC RBC Hgb Hct MCV MCH MCHC RDW Plt Count MPV Neut % (Auto) Lymph % (Auto) [place] % (Auto) Eos % (Auto) Baso % (Auto) Neut # (Auto) Lymph # (Auto) [place] # (Auto) Eos # (Auto) Baso # (Auto) WBC Differential Differential Comment Sodium 145 D Potassium 3.3 L Chloride 109 H D Carbon Dioxide 24.9 Anion Gap 11 BUN 12 Creatinine 0.86 Estimated GFR 65 L POC Glucose 117 H Random Glucose 112 H Calcium 8.7 Urine Color Urine Clarity Urine pH Ur Specific [place] Urine Protein Urine Glucose (UA) Urine Ketones Urine Occult Blood Urine Nitrate Urine Bilirubin Urine Urobilinogen Ur Leukocyte Esterase Urine RBC Urine WBC Urine WBC Clumps Ur Squamous Epith Cells Urine Bacteria Micro UA Comment Urine Culture Comments Microbiology 02/20/18 14:07 Aerobic Blood Culture - Preliminary Blood - Peripheral No growth in 2 days Anaerobic Blood Culture - Preliminary Staphylococcus coag negative 02/20/18 14:17 Aerobic Blood Culture - Preliminary Blood - Peripheral No growth in 2 days Anaerobic Blood Culture - Preliminary Staphylococcus coag negative 02/21/18 17:55 Aerobic Blood Culture - Preliminary Blood - Peripheral No growth in 1 day Anaerobic Blood Culture - Preliminary No growth in 1 day 02/21/18 17:38 Aerobic Blood Culture - Preliminary Blood - Peripheral No growth in 1 day Anaerobic Blood Culture - Preliminary No growth in 1 day 02/20/18 13:53 Urine Culture - Final Catheterized Urine Escherichia coli Result Diagrams: 02/22/18 06:22 02/22/18 06:22 Imaging: ITS Impressions Chest X-Ray 02/20/18 11:54 CONCLUSION: Chronic appearing interstitial changes. No acute abnormality. Head CT 02/20/18 11:54 CONCLUSION: 1. Negative CT Head non contrast. . Abdomen/Pelvis CT 02/21/18 00:00 CONCLUSION: 1. Large but minimally obstructing stone of the left renal pelvis. There is probable irritation of the urothelium. 2. No other acute abnormalities are demonstrated. No abscess. Assessment and Plan - Plan 73y.o F with positive UC and BC and large left renal stone - No acute intervention needed - Continue management of infection by primary team and ID - No stone intervention needed, as per pt she has this stone for some time already - She will need to f/u as an outpt with Urologist after her infection clears up to discuss her stone treatment options Discussed Condition With: Dr Lexa CHO attending who agrees with this plan
[2018-02-22] MEDS: Vancomycin Inj 1,500 MG in Sodium Chlor 0.9% Inj 500 ML IV.SIG SCH (12:41)
[2018-02-22] MEDS: Ibuprofen 600 MG Tablet PO PRN (20:46)
[2018-02-23] MEDS: Heparin - SQ 10,000 UNITS/ML Vial SQ SCH ×3 (03:35→17:24)
[2018-02-23 05:06] VITALS: RESP 18
[2018-02-23] MEDS: Piperacil/Tazo 4.5 GM Premix 4.5 GM/100 ML BAG IV.SIG SCH ×3 (05:32→17:25)
[2018-02-23] MEDS: Levothyroxine 150 MCG Tablet PO SCH (05:33)
[2018-02-23] MEDS: Sod Chloride 0.9% Inj 1,000 ML IV.CONT SCH ×3 (05:33→15:01)
[2018-02-23] MEDS: Vancomycin Inj 1,500 MG in Sodium Chlor 0.9% Inj 500 ML IV.SIG SCH (06:21)
[2018-02-23 06:34] LABS: Hematocrit 36.5 % (35.0-46.0); Hemoglobin 12.4 gm/dL (11.6-15.3); Mean Corpuscular Hemoglobin 31.3 pg (27.0-34.0); Mean Platelet Volume 6.9 fL (7.0-11.0); Platelet Count 276 th/mm3 (150-450); Red Blood Count 3.96 mil/mm3 (4.00-5.30); Red Cell Distribution Width 13.8 % (11.6-17.2); White Blood Count 9.8 th/mm3 (4.0-11.0)
[2018-02-23 06:43] LABS: Calcium 8.6 mg/dL (8.5-10.1); Carbon Dioxide 23.6 meq/L (21.0-32.0); Potassium 3.4 meq/L (3.5-5.1)
[2018-02-23] MEDS ORDERED: Sodium Chloride 0.9% 2 ML Flush PRN IV.FLUSH (08:23)
[2018-02-23] MEDS ORDERED: Sodium Chloride 0.9% 2 ML Flush BID IV.FLUSH SCH (09:00)
[2018-02-23] MEDS: Pantoprazole Sodium 20 MG DR Tablet PO SCH (09:48)
[2018-02-23] MEDS: Duloxetine 60 MG DR Capsule PO SCH (09:48)
[2018-02-23] MEDS: Insulin NovoLOG Aspart Correctional Sugar Inj SQ SCH ×3 (09:53→17:24)
--- NOTE | 2018-02-23 10:04 | P.PNFP ---
Subjective Interval history: Patient was seen and evaluated this morning. She reports having "a rough night" with a fever (Tmax of 100.6) and high blood sugar (144). She is doing well at the time of our encounter. Patient denies chest pain, heart palpitations, shortness of breath, nausea/vomiting, diarrhea and constipation. Patient with questions regarding diabetes. All questions were answered. Education provided. Recommendation to follow-up with PCP made. <Carrie Guo - 02/23/18 10:03> Results - Labs Result diagrams: 02/23/18 04:40 02/23/18 04:40 <Jael Medrano - 02/23/18 16:14> Abnormal lab results 02/22/18 02/23/18 02/23/18 Range/Units 20:47 04:40 04:40 RBC 3.96 L (4.00-5.30) mil/mm3 MPV 6.9 L (7.0-11.0) fL Potassium 3.4 L (3.5-5.1) meq/L Chloride 112 H (98-107) meq/L Estimated GFR 74 L (>89) mL/min POC Glucose 144 H (68-110) mg/dl 02/23/18 Range/Units 13:20 RBC (4.00-5.30) mil/mm3 MPV (7.0-11.0) fL Potassium (3.5-5.1) meq/L Chloride (98-107) meq/L Estimated GFR (>89) mL/min POC Glucose 114 H (68-110) mg/dl Short CBC 02/23/18 Range/Units 04:40 WBC 9.8 (4.0-11.0) th/mm3 Hgb 12.4 (11.6-15.3) gm/dL Hct 36.5 (35.0-46.0) % Plt Count 276 (150-450) th/mm3 BMP 02/23/18 04:40 Sodium 144 Potassium 3.4 L Chloride 112 H Carbon Dioxide 23.6 BUN 10 Creatinine 0.76 Calcium 8.6 <Jael Medrano R - 02/23/18 16:14> Abnormal lab results 02/22/18 02/22/18 02/23/18 Range/Units 12:41 20:47 04:40 RBC 3.96 L (4.00-5.30) mil/mm3 MPV 6.9 L (7.0-11.0) fL Potassium (3.5-5.1) meq/L Chloride (98-107) meq/L Estimated GFR (>89) mL/min POC Glucose 148 H 144 H (68-110) mg/dl 02/23/18 Range/Units 04:40 RBC (4.00-5.30) mil/mm3 MPV (7.0-11.0) fL Potassium 3.4 L (3.5-5.1) meq/L Chloride 112 H (98-107) meq/L Estimated GFR 74 L (>89) mL/min POC Glucose (68-110) mg/dl Short CBC 02/23/18 Range/Units 04:40 WBC 9.8 (4.0-11.0) th/mm3 Hgb 12.4 (11.6-15.3) gm/dL Hct 36.5 (35.0-46.0) % Plt Count 276 (150-450) th/mm3 BMP 02/22/18 02/23/18 14:29 04:40 Sodium 144 Potassium 3.6 3.4 L Chloride 112 H Carbon Dioxide 23.6 BUN 10 Creatinine 0.76 Calcium 8.6 <Carrie Guo - 02/23/18 10:03> Physical Exam Vital signs: Vital Signs 02/22/18 20:00 02/23/18 00:00 02/23/18 04:00 Temperature 100.6 F H 98.2 F 96.2 F L Pulse Rate 92 H 75 79 Respiratory Rate 18 20 18 Blood Pressure 173/74 H 151/71 H 166/81 H Pulse Oximetry 96 97 91 L 02/23/18 08:00 02/23/18 12:00 Temperature 98.1 F 97.4 F L Pulse Rate 75 69 Respiratory Rate 18 18 Blood Pressure 161/69 H 194/92 H Pulse Oximetry 96 96 Intake & Output 02/22/18 02/23/18 02/23/18 18:59 06:59 18:59 Intake Total 2295 / 2295 3600 / 3600 1615 / 1615 Balance 2295 / 2295 3600 / 3600 1615 / 1615 Weight 104.3 kg Intake: IV 1815 / 1815 3200 / 3200 1615 / 1615 NS Inj 1,000 ML @ 140 mls/hr IV 1000 / 1000 3000 / 3000 1000 / 1000 .CONT .Q7H9M [facility]ENN[facility] Rx#:[id number] Zosyn 4.5 GM Premix 4.5 gm In 300 / 300 200 / 200 100 / 100 100 ml @ 200 mls/hr IV.SIG Q6H [facility] Rx#:[id number] Vancomycin Inj 1,500 MG In NS 515 / 515 515 / 515 Inj 500 ML @ 257.5 mls/hr IV. SIG Q18H [facility] Rx#:[id number] Oral 480 / 480 400 / 400 Other: # Voids 2 Date of Last Bowel Movement 02/22/18 02/23/18 02/23/18 # Bowel Movements 1 3 <Jael Medrano - 02/23/18 16:14> Vital Signs 02/22/18 12:00 02/22/18 16:00 02/22/18 20:00 Temperature 97.2 F L 98.5 F 100.6 F H Pulse Rate 69 82 92 H Respiratory Rate 20 20 18 Blood Pressure 144/70 H 175/84 H 173/74 H Pulse Oximetry 95 95 96 02/23/18 00:00 02/23/18 04:00 02/23/18 08:00 Temperature 98.2 F 96.2 F L 98.1 F Pulse Rate 75 79 68 Respiratory Rate 20 18 18 Blood Pressure 151/71 H 166/81 H 161/69 H Pulse Oximetry 97 91 L 96 <Carrie Guo - 02/23/18 10:03> Narrative: GENERAL: Well-nourished, well-developed patient. SKIN: Warm and dry. HEAD: Normocephalic and atraumatic. EYES: No scleral icterus. No injection or drainage. ENT: No nasal drainage noted. Mucous membranes pink. Airway patent. CARDIOVASCULAR: Regular rate and rhythm without murmurs, gallops, or rubs. RESPIRATORY: Breath sounds equal bilaterally. No accessory muscle use. ABDOMEN/GI: Abdomen soft, non-tender, bowel sounds present, no rebound, no guarding EXTREMITIES: No cyanosis or edema. NEUROLOGICAL: Awake and alert. Motor and sensory grossly within normal limits. Normal speech. <Carrie Guo - 02/23/18 10:03> - Urinary Catheter Management Straight Cath placed during this visit: no <Jael Medrano R - 02/23/18 16:14> yes <Carrie Guo - 02/23/18 10:03> Reason for continuing: Not indwelling catheter <Luz Maria Guoin - 02/23/18 10: 03> Insertion date: 02/20/18 <LabellYoavCarrie - 02/23/18 10:03> Insertion time: 16:15 <LabellYoavCarrie - 02/23/18 10:03> Assessment and Plan - Assessment (1) Acute UTI Code(s): N39.0 - Urinary tract infection, site not specified Status: Acute (2) TANIYA (acute kidney injury) Code(s): N17.9 - Acute kidney failure, unspecified Status: Resolved (3) Kidney stone on left side Code(s): N20.0 - Calculus of kidney Status: Chronic (4) Hypothyroidism Code(s): E03.9 - Hypothyroidism, unspecified Status: Chronic (5) Diabetes Code(s): E11.9 - Type 2 diabetes mellitus without complications Status: Chronic (6) Obstructive sleep apnea Code(s): G47.33 - Obstructive sleep apnea (adult) (pediatric) Status: Chronic (7) Hypercholesteremia Code(s): E78.00 - Pure hypercholesterolemia, unspecified Status: Chronic (8) Fibromyalgia Code(s): M79.7 - Fibromyalgia Status: Chronic <Jael Medrano - 02/23/18 16:14> (1) Acute UTI Code(s): N39.0 - Urinary tract infection, site not specified Status: Acute (2) TANIYA (acute kidney injury) Code(s): N17.9 - Acute kidney failure, unspecified Status: Resolved (3) Kidney stone on left side Code(s): N20.0 - Calculus of kidney Status: Chronic (4) Hypothyroidism Code(s): E03.9 - Hypothyroidism, unspecified Status: Chronic (5) Diabetes Code(s): E11.9 - Type 2 diabetes mellitus without complications Status: Chronic (6) Obstructive sleep apnea Code(s): G47.33 - Obstructive sleep apnea (adult) (pediatric) Status: Chronic (7) Hypercholesteremia Code(s): E78.00 - Pure hypercholesterolemia, unspecified Status: Chronic (8) Fibromyalgia Code(s): M79.7 - Fibromyalgia Status: Chronic <Carrie Guo - 02/23/18 09:37> - Assessment and Plan Patient is a 73 year old female admitted to observation for an acute complicated UTI. ID and urology consulted. ID assisting with antibiotic treatment. Urology recommending outpatient follow-up for management of chronic kidney stone. Labs: * Leukocytosis resolved as of 02/23. * Cr normalized as of 02/21. Microbiology: * Urine culture (02/20): growing E.coli. Sensitivities available. * Blood culture (02/20): growing Staph coag neg/Staph epidermidis. * Blood Culture (02/21): no growth to date. Imaging: * CT Abdomen/pelvis: Large but minimally obstructing stone of the left renal pelvis. There is probable irritation of the urothelium. No other acute abnormalities are demonstrated. No abscess. Plan: s/p Vanc and Zosyn in ED 02/20/18. s/p Meropenem for empiric treatment of acute complicated UTI with recent Bactrim use. Restarted on Vanc and Zosyn per ID. FEN: Fluid: * NS at 140ml/hr. Electrolytes: * Monitor and replete as necessary. Nutrition: * Diabetic Diet. DVT prophylaxis: * Heparin 5,000 units q8hr. Discharge: * Pending ID clearance and outpatient management recommendations. <Carrie Guo - 02/23/18 10:03> - Attending Attestation The exam, history, and the medical decision-making described in the above note were completed with the assistance of the resident physician. I reviewed and agree with the findings presented. I attest that I had a [id number] encounter with the patient on the same day, and personally performed and documented my assessment and findings in the medical record. <Jael Medrano - 02/23/18 16:14> <Carrie Guo Filed: 02/23/18 09:37> (5) Diabetes Qualifiers: Diabetes mellitus complication status: without complication <Jael Medrano Filed: 02/23/18 16:14> (5) Diabetes Qualifiers: Diabetes mellitus complication status: without complication <Carrie Guo Filed: 02/23/18 09:37> (5) Diabetes Qualifiers: Diabetes mellitus complication status: without complication <Jael Medrano Filed: 02/23/18 16:14> (5) Diabetes Qualifiers: Diabetes mellitus complication status: without complication
[2018-02-23 17:59] VITALS: BP 168/80; TEMP 97.8; O2SAT 97
[2018-02-23 18:41] VITALS: PULSE 72
[2018-02-23] MEDS ORDERED: Pharmacy Ordered Lab Info OTHER ONE (23:45)
--- NOTE | 2018-03-09 10:05 | P.DS ---
Date of admission: 02/20/18 15:55 Primary care physician: Levy Bunch Brief History from admission: 73 yr old female with hx of hypothyroidism, sleep apnea, diabetes, fibromyalgia , osteoarthritis, hypercholesteremia, and DVT within the last year, presented to the ED with a 4 day history of not feeling well. She has been having chills, nausea, but no vomiting, decreased appetite, and loose stools when eating, for the past 4 days. She was found to have a UTI in the ED, but has had no symptoms of burning, hesitancy, or foul smelling urine. She has increased frequency and has had incontinence due to not making it to the restroom. Denies blood in the urine or stool. She has also had intermittent headaches. She denies fever, shortness of breath, chest pain, and leg pain. Allergies and medications reviewed with patient Social hx: lives with , has cats at home. Denies smoking, drinking, or recreational drug use. Used to be an RN at [employer]. DS: Diagnosis - Discharge Diagnosis (1) Acute UTI Status: Acute (2) TANIYA (acute kidney injury) Status: Resolved (3) Diabetes Status: Chronic (4) Fibromyalgia Status: Chronic (5) Obstructive sleep apnea Status: Chronic (6) Hypothyroidism Status: Chronic (7) Hypercholesteremia Status: Chronic (8) Hx of deep venous thrombosis Status: Resolved (9) Kidney stone on left side Status: Chronic (10) Nutrition, metabolism, and development symptoms Status: Acute (11) DVT prophylaxis Status: Acute DS: Summary Hospital Course: 73 yr old female w/ PMH of diabetes, SAMARA, hypothyroidism, hypercholesteremia, fibromyalgia, osteoarthritis and hx of DVT, admitted to observation for uncomplicated UTI. Pt was seen and evaluated on ED where was found to have an UA positive with many bacteria, large leukocyte esterase, many WBC clumps, large occult blood, and positive nitrates. Labs revealed a creatinine 1.1, and leukocytosis of 17.8. She received Vancomycin and Zosyn in ED. On day two of hospitalization pt developed a fever of 102.3 F. Pt placed on meropenem due to having received Bactrim within the last month. ID was consulted and involved in care. Meropenem was later discontinued and pt received Vancomycin and Zosyn. Urology was consulted due to a kidney stone found on CT abdomen. This finding was chronic in nature and urology recommended a follow up upon discharge. Urine culture w/ E.coli . Blood culture grew Staph coag neg/Staph epidermidis, which seemed to be a contaminant. Pt was adequately treated while inpatient and did not require oral antibiotics upon discharge. She was sent home in a stable condition with instructions to follow up with her PCP. - Time Spent with Patient Total time spent providing and/or coordinating discharge services: Less than 30 minutes - Quality: VTE Deep Vein Thrombosis/Pulmonary Embolism Present on Admission: No Exam Narrative: GENERAL: Well-nourished, well-developed patient. SKIN: Warm and dry. HEAD: Normocephalic and atraumatic. EYES: No scleral icterus. No injection or drainage. ENT: No nasal drainage noted. Mucous membranes pink. Airway patent. CARDIOVASCULAR: Regular rate and rhythm without murmurs, gallops, or rubs. RESPIRATORY: Breath sounds equal bilaterally. No accessory muscle use. ABDOMEN/GI: Abdomen soft, non-tender, bowel sounds present, no rebound, no guarding EXTREMITIES: No cyanosis or edema. NEUROLOGICAL: Awake and alert. Motor and sensory grossly within normal limits. Normal speech. Results Procedures completed during hospitalization: none - Impressions ITS Impressions Chest X-Ray 02/20/18 11:54 CONCLUSION: Chronic appearing interstitial changes. No acute abnormality. Head CT 02/20/18 11:54 CONCLUSION: 1. Negative CT Head non contrast. . Abdomen/Pelvis CT 02/21/18 00:00 CONCLUSION: 1. Large but minimally obstructing stone of the left renal pelvis. There is probable irritation of the urothelium. 2. No other acute abnormalities are demonstrated. No abscess. Discharge Plan - Discharge Disposition Patient Disposition: Discharge Home - Discharge Condition Condition: Stable - Discharge Order Discharge Orders: Discharge Order (Routine); Ordered 02/23/18 Ordered By: Carrie Guo - Discharge Details Anticipated Discharge Date: 02/23/18 - Physicians Team Primary Care Provider: Levy Bunch Attending Provider: Jael Medrano Other Providers: Eva Brar MD ; [employer],Insurance ; Vick Bills MD
== END 2018-02-23 18:30 | disposition home or self-care (01) ==
LOC: NEPC 11:30 → INTOOBSV 15:30 → NEDA 15:30 → N04 18:02
PROVIDERS: ADMIT Family Medicine; ATTEND Family Medicine